=== PATIENT | female | born 1960 | race Caucasian/White ===

== ENCOUNTER 2017-01-01 22:08 | Inpatient (IN) ==
[2017-01-01 22:56] LABS: MANUAL DIFF NEEDED? NO; RBC 4.77 XMIL (4.2-5.4)
[2017-01-01 23:01] LABS: URINE MICRO REVIEW NEEDED? NO; URINE SOURCE CLEAN CATCH
[2017-01-01 23:14] LABS: ALBUMIN 4.6 g/dL (3.5-5.0); CALCIUM 10.3 mg/dL (8.8-10.2); POTASSIUM 4.3 mmol/L (3.5-5.1); TOTAL BILIRUBIN 0.35 mg/dL (0.20-1.00); TOTAL PROTEIN 7.6 g/dL (6.3-8.3)
[2017-01-01 23:18] LABS: BILIRUBIN URINE NEGATIVE (NEGATIVE); BLOOD URINE NEGATIVE (NEGATIVE); COLOR YELLOW; GLUCOSE URINE NEGATIVE (NEGATIVE); LEUKOCYTES URINE SMALL (NEGATIVE); NITRITE URINE NEGATIVE (NEGATIVE); PROTEIN URINE TRACE mg/dL (NEGATIVE); SP GRAVITY URINE 1.022; TURBIDITY URINE CLEAR (CLEAR); UROBILINOGEN URINE NORMAL (NORMAL)
[2017-01-01 23:20] LABS: UR EPITHELIAL CELLS <10 /HPF (<10); URINE BACTERIA NEGATIVE /HPF; URINE CULTURE NEEDED? YES; URINE RBC <10 /HPF (<10); URINE WBC <10 /HPF (<10)
[2017-01-01] MEDS ORDERED: ZOFRAN IV ONE (23:29)
[2017-01-01] MEDS ORDERED: DILAUDID IV ONE (23:29)
[2017-01-02] MEDS ORDERED: ZOFRAN IV PRN (00:40)
[2017-01-02] MEDS ORDERED: NS 1,000 ML IV ONE (00:40)
--- NOTE | 2017-01-02 00:44 | PROVIDER DOCUMENTATION ---
This chart was entered by Krystyna Davis Scribe, acting as scribe for Caden Kaur PA. HPI-Abdominal Pain/GI Problem - General Chief Complaint: Abdominal Pain Stated Complaint: ABD PAIN Time Seen by Provider: 01/01/17 23:03 Source: patient Allergies/Adverse Reactions: Patient Allergies Allergy/AdvReac Type Severity Reaction Status Date / Time No Known Allergies Allergy Verified 01/02/17 00:20 Home Medications: Home Medication List Medication Instructions Recorded Confirmed Last Taken Type Levetiracetam 500 mg PO QPM 05/26/15 01/02/17 01/01/17 History Alprazolam [Xanax] 1 mg PO HS 07/08/16 01/02/17 01/01/17 History Vitamin B Complex 1 each PO DAILY 07/08/16 01/02/17 01/01/17 History Hydrocodone/APAP 10 mg/325 mg 1 each PO Q6H PRN PRN #0 tablet 07/10/16 01/02/17 01/01/17 Rx [[place]-10] - History of Present Illness-ABD Nature of Presenting Problems: 56 year old F presents to the ED with a cc of lower ABD pain with an onset of this morning at 0815. PT states that it has become more achy and severe. PT states that she has not had a bowel movement or passing flatulence. Pt states that pain subsided around 1500. TP states that she ate a small meal and it has since come back and pt states that she has lost her appetite. Pt states that she has a hx of incarcerated hernia with a repair by Dr. Jordan. Quality of Pain: reports: aching Severity in ED: reports: severe Onset/Duration: reports: this morning (0815) Timing: reports: still present Bruising or Bleeding Gums?: No Similar Symptoms Previously?: No Recently seen or treated by another doctor?: No Review of Systems - Adult - REVIEW OF SYSTEMS - ADULT Constitutional: denies: chills, fever Eyes: reports: no symptoms reported. denies: blurred vision, double vision Ears, Nose, Mouth & Throat: reports: no symptoms reported Cardiovascular: reports: no symptoms reported Respiratory: reports: no symptoms reported Gastrointestinal: reports: abdominal pain. denies: nausea, vomiting Genitourinary: denies: dysuria, flank pain, hematuria Musculoskeletal: reports: no symptoms reported Integumentary: reports: no symptoms reported Neurological: reports: no symptoms reported Psychiatric: reports: no symptoms reported Endocrine: reports: no symptoms reported Hematologic/Lymphatic: reports: no symptoms reported Allergic/Immunologic: reports: no symptoms reported All Other Systems: Reviewed and Negative Past History - Adult - PAST MEDICAL HISTORY-ADULT Review of Records: reports: Nursing Assessment Review, Medications Reviewed Major Childhood Illnesses: reports: denies history Cardiovascular: reports: cardiac disease, HTN Respiratory: reports: denies history Gastrointestinal: reports: denies history Obstetrical/Gynecological: reports: denies history Genitourinary: reports: denies history Musculoskeletal: reports: denies history Neurological: reports: Seizures/Epilepsy Endocrine/Immune: reports: Diabetes, thyroid disorder Other Conditions: reports: denies history - PRIOR SURGERIES/PROCEDURES Surgical/Procedure History: reports: cholecystectomy, hysterectomy, bowel surgery (Internal hernia surgery by Dr. Jordan 05/2015), gastric bypass - IMMUNIZATION STATUS Childhood Immunizations: See Nurse Assessment Flu Vaccine: See Nurse Assessment - FAMILY HISTORY Family History: reviewed, not pertinent - SOCIAL HISTORY Smoking: quit greater than 1 year Substance Use: marijuana Alcohol Use Frequency: never Physical Exam-General - PHYSICAL EXAM-ADULT Initial Vital Signs Reviewed: Yes - CONSTITUTIONAL General Appearance: alert, moderate distress - EYES Eyes: PERRL/EOMI, pink conjunctivae - HEAD, EARS, NOSE, MOUTH & THROAT HENMT: normocephalic/atraumatic, moist mucous membranes, normal ENT inspection - NECK Neck: normal inspection - RESPIRATORY Respiratory: chest non-tender, lungs clear, normal breath sounds - CARDIOVASCULAR Cardiovascular: normal peripheral pulses, regular rate, rhythm - GASTROINTESTINAL (ABDOMEN) Abdominal Exam: guarding, rebound, tenderness (diffuse lower abd pain) - LYMPHATIC Lymphatic: no adenopathy - MUSCULOSKELETAL Back Exam: normal inspection, no CVA tenderness, no vertebral tenderness Extremity: normal range of motion, non-tender, normal inspection - SKIN Integumentary: normal color, normal turgor, warm/dry - NEUROLOGIC Neurologic: grossly normal, no motor/sensory deficits - PSYCHIATRIC Psych/Mental Status: normal mood/affect, normal thought content, normal thought process, oriented x 3 Progress - PLAN OF CARE/RESULTS Progress/Plan/Lab Results: Vital Signs - 8 hr 01/01/17 22:14 Temperature 97.5 F L Pulse Rate 112 H Respiratory Rate 20 Blood Pressure 144/102 O2 Sat by Pulse Oximetry 96 Laboratory Results - last 24 hr 01/01/17 01/01/17 01/01/17 22:43 22:43 22:43 WBC 9.70 RBC 4.77 Hgb 15.2 Hct 45.8 MCV 96.0 MCH 31.9 H MCHC 33.2 RDW Std Deviation 13.0 Plt Count 221 MPV 11.1 H Immature Gran % (Auto) 0.2 Neut % (Auto) 81.9 H Lymph % (Auto) 11.6 L [place] % (Auto) 5.6 Eos % (Auto) 0.5 Baso % (Auto) 0.2 Immature Gran # (Auto) 0.02 Neut # (Auto) 7.94 H Lymph # (Auto) 1.13 L [place] # (Auto) 0.54 Eos # (Auto) 0.05 Baso # (Auto) 0.02 Sodium 138 Potassium 4.3 Chloride 97 L Carbon Dioxide 25 Anion Gap 16 BUN 21 Creatinine 1.3 H Estimated GFR/1.73 m2 42 BUN/Creatinine Ratio 16 Glucose 108 H Calculated Osmolality 279 Calcium 10.3 H Total Bilirubin 0.35 AST 22 ALT 17 Alkaline Phosphatase 87 Total Protein 7.6 Albumin 4.6 Globulin 3.0 Albumin/Globulin Ratio 1.5 Amylase 59 Lipase 15 Urine Source CLEAN CATCH Urine Color YELLOW Urine Turbidity CLEAR Urine pH 6.0 Ur Specific [place] 1.022 Urine Protein TRACE A Ur Glucose (Stick) NEGATIVE Ur Ketones (Stick) NEGATIVE Urine Blood NEGATIVE Urine Nitrite NEGATIVE Urine Bilirubin NEGATIVE Urobilinogen Dipstick NORMAL Urine Leukocytes SMALL A Urine WBC (Auto) <10 Urine RBC (Auto) <10 U Epithel Cells (Auto) <10 Urine Bacteria (Auto) NEGATIVE Orders Category Date Time Status Saline Loc DIRECTED Care 01/01/17 22:29 Active NPO Diet 01/01/17 22:[address] ABD/PELVIS W/ IV CONT ONLY [CT] Stat Exams 01/01/17 23:28 Taken AMYLASE [CHEM] Stat Lab 01/01/17 22:43 Completed CBC WITH ELECTRONIC DIFF [HEME] Stat Lab 01/01/17 22:43 Completed COMPREHENSIVE METABOLIC PANEL [CHEM] Stat Lab 01/01/17 22:43 Completed LIPASE [CHEM] Stat Lab 01/01/17 22:43 Completed URINALYSIS W/POSS RFLX CULT-1 [URINALYSIS] Stat Lab 01/01/17 22:43 Completed URINE CULTURE [RM] Routine Lab 01/01/17 23:22 Received Hydromorphone [Dilaudid] Med 01/01/17 23:29 Discontinued 1 mg IV NOW ONE Ondansetron [Zofran] Med 01/01/17 23:29 Discontinued 4 mg IV NOW ONE 0028: Dr. Lott at bedside examining pt. Result Diagrams: 01/01/17 22:43 01/01/17 22:43 - REASSESSMENT Reassessment #1 Time Reassessed: 00:35 (Dr. Lott (General Surgery) at bedside. Feels that pt may have an internal hernia that is not apparent on CT scan. He will admit pt and is taking her to the OR tonight.) - CT/MRI 1 CT Study: Abdomen, Pelvis Impression: Abnormal (abnormal edema in the mesenteric fat of the left ABD and pelvis is of uncertain etiology. There is a small amount of free fluid. No obstruction or free air. This was not present previously. No large vessel vascular occlusion identified. Chronic biliary ductal dilatation of uncertain etiology.:Dr. Bell(Real Rad Radiologist)) - CONSULTS/PCP/HOSPITALIST Notification #1 *Consult/PCP/Hospitalist*: Dr. Lott (General Surgery) Time Discussed: 00:10 (Will take to OR tonight.) Departure - Departure Date of Disposition Decision: 01/02/17 Time of Disposition Decision: 00:37 DIAGNOSIS: Abdominal pain, Internal hernia Disposition: ADMITTED INPATIENT 09 Certified Medical Emergency: Emergent Condition: Stable Referrals and Follow-Ups: Azam Roa MD [Primary Care Provider] - - Critical Care Note This patient required my direct & personal management of CC.: No Attestation - Physician/ TYREE Attestation Patient care was provided by Advanced Practice Provider:: Yes Advanced Practice Provider:: Caden Kaur Advanced Practice Provider documentation review:: The Mid-level provider documentation, treatment plan and medical decision making was reviewed by the physician who agrees with all treatment and medical decision making by the MLP. This chart was documented by the indicated scribe, (Krystyna Davis Scribe) and accurately reflects the services I performed and decisions made by me, Caden Kaur PA, as attested by the provider's signature.
[2017-01-02 01:00] LABS: INR 0.99; PROTIME 10.4 Seconds (9.2-11.7); PTT 26.1 Seconds (22.0-36.0)
[2017-01-02 01:16] LABS: BASO% 0.3 % (0.0-0.8); EOS# 0.04 X1000 (0.0-0.7); EOS% 0.4 % (0.0-10.0); HEMATOCRIT 45.7 % (37.0-47.0); HEMOGLOBIN 15.3 g/dL (12.0-16.0); LYMPH# 1.18 X1000 (1.2-3.4); LYMPH% 12.5 % (20.5-51.1); MCH 32.1 PG (27-31); MCHC 33.5 g/dL (33-37); MCV 95.8 FL (81-99); MONO# 0.59 X1000 (0.11-0.59); MONO% 6.2 % (1.7-9.3); MPV 11.8 FL (7.4-10.4); NEUT% 80.6 % (42.2-75.2); PLT 219 X1000 (130-400)
[2017-01-02] MEDS: MORPHINE IV PRN ×6 (01:21→23:09)
[2017-01-02] MEDS ORDERED: INVANZ 1 GM/NS 1 GM/50 ML IVPB ONE (01:58)
[2017-01-02] MEDS ORDERED: LABETALOL (DOSE) IV ONE ×2 (03:25→04:00)
[2017-01-02] MEDS: MORPHINE ONE ×2 (03:29→07:13)
[2017-01-02] MEDS: PHENERGAN ONE ×2 (03:29→07:13)
[2017-01-02] MEDS ORDERED: LOPRESSOR ONE (03:31)
[2017-01-02] MEDS: LOPRESSOR IV SCH ×6 (03:34→20:37)
[2017-01-02] MEDS: LABETALOL ONE ×2 (03:40→07:13)
[2017-01-02] MEDS: DILAUDID ONE ×2 (03:42→07:14)
--- NOTE | 2017-01-02 04:29 | HISTORY AND PHYSICAL ---
DATE OF ADMISSION: 01/02/2017 HISTORY OF PRESENT ILLNESS: This is a 56-year-old female with history of a Romy -en-Y gastric bypass for morbid obesity many years ago, who has history of nephrolithiasis and chronic pain. She was operated on by Dr. Jordan back in May 2015 for an internal hernia through the jejunojejunostomy mesenteric defect. The repaired this and she has done well since that time. She states that earlier this evening, she developed a similar-type pain and nausea just like her previous episode in 2014 prompting her admission to the emergency department. She has had and lithotripsies and stents placed in the past for kidney stones but she states that those have been relatively asymptomatic and if she did have symptoms, it was different than what she is having currently. Denies any vomiting. Bowel function has been otherwise normal up to this point. She does not smoke. Denies any NSAID abuse. PAST MEDICAL HISTORY: 1. Atrial fibrillation. 2. History of morbid obesity with gastric bypass. 3. Hypertensive. 4. Diabetic. 5. Seizure disorder. 6. Nephrolithiasis. PAST SURGICAL HISTORY: 1. Romy-en-Y gastric bypass. 2. Cholecystectomy. 3. Hysterectomy. 4. Exploratory laparotomy with repair of internal hernia. SOCIAL HISTORY: Denies tobacco, alcohol, or drugs. She is here with her son. REVIEW OF SYSTEMS: Ten point negative except for what is mentioned in her HPI. PHYSICAL EXAMINATION: Vital Signs: Temperature is 97.5, pulse has been in the 1 teens, blood pressure 144/102, oxygen saturation 96% on room air. General: She is in obvious discomfort. She is writhing around in bed, holding her stomach. Cardiovascular: She is tachycardic but this feels regular. Pulmonary: No increased work of breathing. Abdomen: Diffusely tender. Worse on her left side. She does have some guarding both voluntary and involuntary. She is nondistended. Integument: Otherwise warm, dry without jaundice. Lymphatics: I do not feel any cervical, supraclavicular or infraclavicular lymphadenopathy. LABS/DIAGNOSTICS: Reviewed. White count is normal at 9. Hematocrit is elevated at 45, platelets 221,000. Creatinine is 1.3. This is around her baseline. Glucose 108. LFTs are normal. Bilirubin 0.35. AST 22 and ALT 17, alkaline phosphatase 87, lipase 15, amylase 59. Urinalysis shows some small leukocytes, trace protein but it is negative for blood. A CT scan with some vague findings shows common bile duct dilation which has been stable on numerous scans but dating back over the last several years. She also has some mesenteric edema and stranding on the left side of her abdomen extending down the pelvis. There is no obvious bowel wall thickening. There is some trace free fluid. I do not see any free air. I do not see an obvious mesenteric swirl or evidence of internal hernia. ASSESSMENT AND PLAN: This is a 56-year-old female with history Romy-en-Y gastric bypass, who had emergent operation 2 years ago for internal hernia by Dr. Jordan. She presents back now with similar-type symptoms to that time and some nonspecific changes on her CT scan. Given the catastrophic consequence of missing an internal hernia, I have recommended exploratory laparotomy tonight and repair of internal hernia with all indicated procedures. She does have a history of atrial fibrillation and it is possible that she has had some kind of focal ischemic insult. She has a lactic acid that is pending. I do not see signs of obstructing renal stone, as she has no blood in her urine to suggest that this is the etiology. She has a mild urinary tract infection. But again, suspect this is not causing her ultimate problems. We discussed possibly a bowel resection possible ostomy and all indicated procedures, and we also discussed the possibility of a negative exploratory laparotomy. She understands and consents to this. We will proceed emergently tonight to the operating room. Placed in G-tube and Ramirez catheterization at this point, in anticipation of the OR. We will admit her to my service postoperatively. cc: Erick Lott MD [facility]
--- NOTE | 2017-01-02 04:52 | OPERATIVE NOTE ---
PROCEDURE DATE: 01/02/2017 PREOPERATIVE DIAGNOSIS: Internal hernia with history of Romy-en-Y gastric bypass. POSTOPERATIVE DIAGNOSES: 1. Internal hernia related to adhesions from the appendix to the abdominal wall. 2. Nodular liver. PROCEDURES PERFORMED: 1. Exploratory laparotomy. 2. Open appendectomy. 3. Lysis of adhesions. 4. A wedge resection biopsy of segment 3 liver nodules. COMPLICATIONS: None. ANESTHESIA: General. INDICATIONS: A 56-year-old female, who has a history of a Romy-en-Y gastric bypass many years ago. Approximately 3 years ago, she required emergent exploratory laparotomy with reduction of internal hernia secondary to a defect in the jejunojejunostomy mesenteric defect who presents with acute onset of abdominal pain similar to her previous episode and some mesenteric edema noted and stranding noted on the CT scan. OPERATIVE FINDINGS: There was volvulus of the small bowel in the right lower quadrant related to adhesions to the appendix and to the sidewall. The appendix did not appear significantly dilated or inflamed but there was some loose adhesions to the anterior lateral abdominal wall that had caused the defect to allow some small bowel to herniate through this. All the small bowel was viable. There was a patent jejunal jejunostomy with no mesenteric defect. The [place] defect was closed. There is an antecolic Romy limb extending up to the gastric pouch with a patent anastomosis here. The gastric remnant appeared normal. There is no significant dilation of small bowel. There are some adhesions to the gallbladder fossa from previous cholecystectomy. Uterus was absent as were the ovaries. Small amount of serosanguineous ascites. There was a diffusely nodular liver. There were small punctate whitish appearing nodules throughout bilateral lobes of the liver of unclear etiology. OPERATIVE NOTE: Risks, benefits, and alternatives were discussed with the patient and family. She consented to the procedure. She was taken emergently to the operating room after general anesthesia was induced. She did have a Ramirez catheter and an NG tube placed prior to induction. General anesthesia was induced. Incisional antibiotics with Invanz were administered. Her arms were tucked and padded and placed in neutral position. Her abdomen was prepped with chlorhexidine solution and draped in usual fashion. After time-out was performed, the previous midline incision was incised and carried down to the level of the fascia. The fascia was elevated and entered sharply to protect the underlying bowel. There was minimal midline adhesions noted and we protected the bowel here. There is no injury obtaining access. We opened the incision cephalad and inferiorly and then starting at the ileocecal valve, the cecum was mildly dilated but we started here. It became clear there were adhesions. The cecum was quite redundant but there were adhesions of the appendix down to the right lower quadrant. We ran the small bowel. We did require some reduction but this was easily done out of this defect made here. We ran it from distally proximally identifying the jejunojejunostomy. This was patent without perforation and the mesenteric defect was closed here. We ran this back following the Romy limb up in an anti colic fashion. Noriega space here was closed as well. There is no defect here. The biliopancreatic limb was nondilated and coursed in the usual position. We examined the gastric pouch and the gastrojejunostomy and these looked okay. The colon had some formed stool throughout but did not appear to be obstructed by the Romy limb and the colon was normal. After reducing the small bowel back into its anatomic position. We identified the appendix. We lysed these adhesions off the lateral pelvic sidewall. We took the mesoappendix with silk ties and clamps taking it back to the base of the cecum. We then doubly ligated including a suture ligature the base of the appendix and divided this passing it off as specimen. We fulgurated the base and imbricated this with a Z-type imbricating suture. There is good closure of the appendiceal stump. Hemostasis was noted. We then ran the small bowel again. Everything was laying in a neutral position. There is no residual mesenteric defect. We irrigated the abdomen. At this point, we inspected the liver and we noticed that it was diffusely nodular and was not a typical steatosis or cirrhotic appearance. As such, we elected to take a biopsy to rule out any neoplastic process here. We elevated the liver and placed a malleable retractor to protect the stomach underlying. Using electrocautery, we excised out a wedge segment of segment 3 of the liver and obtained hemostasis of the bed and passed this off as a liver biopsy. We confirmed hemostasis. No bile leakage here. We again irrigated the abdomen and inspected it for hemostasis. We closed the fascia #1 running looped PDS. Irrigated the superficial wound, buried the knot and we closed the skin with skin golden, gauze and Medipore tape dressing was applied. Counts correct x2.She was awoken and transferred to PACU in good condition. I spoke with the family. cc: Erick Lott MD MTDD
[2017-01-02] MEDS: CARDIZEM 100 MG/NS 100 MG/100 ML IVPB IV SCH ×2 (04:56→09:23)
[2017-01-02] MEDS ORDERED: DIPRIVAN 1% ONE (05:14)
[2017-01-02] MEDS ORDERED: FENTANYL ONE (05:14)
[2017-01-02] MEDS ORDERED: MORPHINE ONE (05:14)
[2017-01-02 05:47] LABS: MANUAL DIFF NEEDED? NO
[2017-01-02 05:51] LABS: BASO% 0.1 % (0.0-0.8); HEMATOCRIT 43.6 % (37.0-47.0); HEMOGLOBIN 14.4 g/dL (12.0-16.0); IMM GRAN# 0.05 X1000 (0.0-0.04); IMM GRAN% 0.3 % (0.0-0.5); LYMPH% 6.9 % (20.5-51.1); MCH 32.1 PG (27-31); MCV 97.1 FL (81-99); MONO# 1.73 X1000 (0.11-0.59); MONO% 9.2 % (1.7-9.3); MPV 11.7 FL (7.4-10.4); NEUT% 83.5 % (42.2-75.2); PLT 233 X1000 (130-400); RBC 4.49 XMIL (4.2-5.4)
[2017-01-02] MEDS ORDERED: SODIUM CHLORIDE 0.9% INJ ONE (06:20)
[2017-01-02] MEDS ORDERED: PROTONIX IV ONE (06:20)
[2017-01-02] MEDS ORDERED: LR 1,000 ML IV SCH (06:20)
[2017-01-02 07:05] LABS: CALCIUM 8.7 mg/dL (8.8-10.2); POTASSIUM 3.6 mmol/L (3.5-5.1)
--- NOTE | 2017-01-02 08:00 | Diag Imaging Result Doc PS360 ---
EXAM: CT ABD/PELVIS W/ IV CONT ONLY INDICATION: ABD PAIN, H/O INCARCERATED HERNIA COMPARISON: 02/26/2016 FINDINGS: There has been a previous cholecystectomy. There is significant intrahepatic and extrahepatic biliary dilatation with the common bile duct measuring up to 1.9 cm axially. However, it appears to be less dilated than the previous study. There are several low dense hepatic foci most compatible with small cysts. There is a small enhancing lesion near the border between the left and right hepatic lobe. It is best seen on the early arterial phase and measures approximately 1.4 cm in the greatest dimension. It is stable as compared to a prior enhanced CT dated 05/26/2015 and may represent a small flash filling hemangioma. There is evidence of prior gastric bypass. No discrete pancreatic mass can be identified. There is a small hiatal hernia. There is a small amount of ascites tracking around the liver. There is no evidence of bowel obstruction. There is evidence of bilateral renal cortical scarring, worse on the right, stable. There is bilateral nephrolithiasis with no sign of obstruction. There is nonspecific fairly diffuse mesenteric edema. There is marked thickening of the left adrenal gland, which is stable. It exhibits a density compatible with left adrenal adenomas. There is aortoiliac atherosclerotic calcification but no evidence of aneurysm. The remainder of the solid viscera of the abdomen and pelvis and the remainder of the GI tract are essentially unremarkable. IMPRESSION: 1.Small amount of ascites tracking around the liver and diffuse mesenteric edema of uncertain etiology. 2.Biliary dilatation. However, the common bile duct appears slightly less dilated than the previous study. 3.Other incidental/nonacute findings detailed above. Electronically signed by Caden Roberts 01/02/2017 7:58 AM
--- NOTE | 2017-01-02 08:19 | Diag Imaging Result Doc PS360 ---
EXAM: CHEST/ABD TUBE PLACEMENT HISTORY: NG tube TECHNIQUE: Portable upright at 0115 COMMENT: There is an NG tube with its tip at the level of the cardia of the stomach. The left costophrenic angle is not included on the image. There is no evidence of focal pulmonary opacity otherwise in the heart and pulmonary vascularity are within normal limits. There is some questionable extraluminal gas in the lower portion of the neck extending into the superior mediastinum along the trachea. Further evaluation may be desirable. IMPRESSION: NG tube at the level of the gastroesophageal junction or slightly below. Questionable superior pneumomediastinum. Electronically signed by Deacon Schmidt 01/02/2017 8:17 AM
[2017-01-02] MEDS ORDERED: SODIUM CHLORIDE 0.9% 10 ML ONE (09:29)
[2017-01-02] MEDS ORDERED: NEOSTIGMINE ONE (09:29)
[2017-01-02] MEDS ORDERED: LABETALOL (DOSE) ONE (09:29)
[2017-01-02] MEDS ORDERED: NORCURON ONE (09:29)
[2017-01-02] MEDS ORDERED: ZOFRAN ONE (09:29)
[2017-01-02] MEDS ORDERED: XYLOCAINE-MPF 2% ONE (09:30)
[2017-01-02] MEDS ORDERED: QUELICIN (DOSE) ONE (09:30)
[2017-01-02] MEDS ORDERED: ROBINUL ONE (09:30)
[2017-01-02] MEDS ORDERED: LR 2,000 ML ONE (09:30)
--- NOTE | 2017-01-02 11:23 | CONSULTATION ---
DATE OF CONSULTATION: 01/02/2017 PRIMARY CARE PHYSICIAN: Dr. Azam Roa DESK ATTENDANT: Dr. Major REASON FOR CONSULTATION: Management of atrial fibrillation. HISTORY OF PRESENT ILLNESS: Ms. Dan is a pleasant 56-year-old female who presented to the hospital yesterday evening with complaints of recurrent abdominal pain. They did a CT scan of the abdomen and pelvis that showed biliary dilatation, a small amount of ascites tracking around the liver and diffuse mesenteric edema of uncertain etiology. The patient was taken emergently to the operating room by Dr. Glen Lott, and he performed an exploratory laparotomy with open appendectomy, lysis of adhesions and a wedge resection of a segment of the liver because of nodules. The patient is in the postoperative state. She was found to be in atrial fibrillation with rapid response. She has been placed on IV Cardizem, and heart rate is better after she received also a dose of metoprolol 5 mg. The patient at this time is not having any chest pain nor symptoms in the chest. She just has incisional pain, and she is on a Ventimask. Otherwise, she seems to be comfortable and in no distress. She is in the immediate postoperative state following this abdominal surgery. PAST MEDICAL HISTORY: Positive for atrial fibrillation, initially paroxysmal and subsequently has become permanent. There was hesitation from the Cardiology Team about putting her on anticoagulation because she was having recurrent kidney stones and hematuria. In addition, she is relatively young and has hypertension that is not significantly severe. She used to be diabetic; however, after undergoing gastric bypass and losing nearly 200 pounds, she has normalized her blood sugars. History is positive for recurring kidney stones. She has a seizure disorder diagnosed 2 or 3 years ago. She has gastric reflux. PAST SURGICAL HISTORY: Positive for a gastric bypass procedure. She has also been operated for cholecystectomy and hysterectomy. She has also had an internal hernia that required surgery for an internal hernia reduction via exploratory laparotomy by Dr. Jordan in 05/2015. SOCIAL HISTORY: She is and lives with her son who is 26 years of age. She is not a smoker and not a drinker. 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 HOME MEDICATIONS: Levetiracetam 500 mg at bedtime, hydrocodone every 6 hours, Xanax at bedtime, vitamin B complex daily. ALLERGIES: She has no reported allergies. REVIEW OF SYSTEMS: Really nothing significant other than the fact that she has lost a great deal of weight of more than 330 pounds prior to the bypass down now to 128 pounds. She said that her diabetes has not required any more treatment with medicines. She follows with Dr. Roa regularly. She has had procedures done for kidney stones by Dr. Urban. No strokes. No heart attacks. No active heart problems. The last echocardiogram that we have on record was done on 02/27/2016 and it showed normal left ventricular systolic function with moderate to significant dilatation of both atria, moderate degree of mitral and tricuspid regurgitation and significant pulmonary hypertension. She has had previous myocardial perfusion stress test in 01/2014 that showed a defect suspicious for attenuation artifact in the mid inferior and basilar inferior wall. PHYSICAL EXAMINATION: Today, blood pressure is 130/78, temperature 99.1, pulse 94, respirations 31. She is awake, alert, oriented, in no distress. HEENT is unremarkable. Chest is very clear to auscultation and percussion. Heart sounds are irregularly irregular without gallop or murmur. Her abdomen is tender, especially at the incision. Bowel sounds are diminished. Extremities showed good pulses. No peripheral edema. Neurologic: She moves all 4 extremities, follows commands. DIAGNOSTIC DATA: Blood work today showed sodium 140, potassium 3.6, BUN of 18, creatinine 1.1. Troponin has been checked and is negative. She has had hemoglobin of 14.4, white count 18,730, platelet count is 233,000. IMPRESSION: 1. The patient is status post laparotomy for management of what appears to be an internal hernia involving the appendix. Appendectomy and hernia repair have been performed. 2. Chronic atrial fibrillation. 3. History of hypertension. 4. Status post gastric bypass for management of morbid obesity. Her weight now is 125 pounds. 5. History of recurrent kidney stones. 6. Reported history of diabetes that apparently is under control now after the massive weight reduction. RECOMMENDATIONS: From a cardiology viewpoint, the patient appears to be stable. I would suggest to continue beta blockers at low doses as you are doing. You may continue IV Lopressor 5 mg every 4 to 6 hours and then once the oral route is available, we may switch over to metoprolol 25 mg every 6 to 8 hours to optimize the patient's heart rate. Regarding anticoagulation, we will make a decision about that down the road. At this point in time, I would suggest not to give her anything but preventive doses of Lovenox. Thank you for the opportunity to participate in her evaluation. Best regards. cc: MD Erick Pride MD
[2017-01-02] MEDS: 1/2 NS 1,000 ML IV SCH ×2 (13:08→20:40)
[2017-01-02] MEDS: OFIRMEV 1000 MG/ISOTONIC SOLN 1,000 MG/100 ML BOTTLE IV SCH (18:43)
[2017-01-02] MEDS: XANAX PO SCH (20:38)
[2017-01-02] MEDS: KEPPRA PO SCH (20:38)
[2017-01-03] MEDS: OFIRMEV 1000 MG/ISOTONIC SOLN 1,000 MG/100 ML BOTTLE IV SCH ×4 (00:26→18:12)
[2017-01-03] MEDS: LOPRESSOR IV SCH ×4 (03:24→21:00)
[2017-01-03] MEDS: MORPHINE IV PRN ×8 (03:24→23:57)
--- NOTE | 2017-01-03 06:30 | PROGRESS NOTE ---
DATE: 01/02/2017 SUBJECTIVE: Minimal pain. She is requiring some open face mask O2 when she falls asleep. Heart rates better controlled and now less than 100 consistently on the diltiazem drip. Otherwise, hemodynamically stable. Urine output has been good. OBJECTIVE: Vital Signs: Temperature afebrile 99.1, pulse 94, blood pressure 130/78, oxygen saturation 98% on 4 L nasal cannula. General: She is alert, in no acute distress. Dressing is clean, dry, and intact. Abdomen: Soft, appropriately tender. LABS: Reviewed her labs. White count is up to 18, hematocrit 43, creatinine is 1.1. Glucose 224. Troponins are normal. Lactate was elevated at 3.9. ASSESSMENT AND PLAN: This is a 56-year-old female status post exploratory laparotomy with internal small-bowel volvulus with no necrosis related to adhesions. Overall she is doing well. Will remove her nasogastric tube this morning. Plan to keep the Ramirez in and take it out tomorrow. She is in the intensive care unit. Cardiology's recommendations are pending, but she is on metoprolol and diltiazem. cc: Erick Lott MD
[2017-01-03] MEDS: 1/2 NS 1,000 ML IV SCH ×2 (09:42→23:53)
--- NOTE | 2017-01-03 12:04 | PROGRESS NOTE ---
DATE: 01/03/2017 SUBJECTIVE: She is not having any complaints today other than mild to moderate abdominal tenderness. She is tolerating ice chips without much discomfort. PHYSICAL EXAMINATION: Vital signs: Currently, her heart rate is in the 80s during my examination. She has been afebrile. T-max of 100.1 yesterday at 8 p.m. Heart rates documented appear to be in the 90s to very low 100s. Blood pressure 157/101. General: She is in no acute distress. Cardiovascular: She is in an irregularly irregular rhythm. She has no murmurs, no lower extremity edema. Chest: Exam is clear bilaterally. No increased work of breathing. Abdomen: Soft. She has mild to moderate tenderness to palpation somewhat diffusely. Minimal bowel sounds were auscultated. PERTINENT LABORATORY DATA: White count is 18.7, hematocrit 43, platelet count is 233. Sodium is 140. Potassium is 3.6. Her BUN is 18, creatinine is 1.1. ASSESSMENT: Chronic atrial fibrillation. PLAN: Rate is reasonably well controlled. We can certainly switch to oral medications when she is able to take them reliably. Again, would likely use metoprolol per Dr. Morris's recommendations yesterday. I would withhold anticoagulation presently considering concerns previously with long-term outpatient oral anticoagulation with her repetitive history of kidney stones and hematuria. cc: MD Erick Saldaña MD
--- NOTE | 2017-01-03 12:36 | PROGRESS NOTE ---
DATE: 01/03/2017 SUBJECTIVE: The patient denies any severe pain, nausea or vomiting. She has not had any flatus yet. OBJECTIVE: Vital signs: She is afebrile. Vital signs are stable. Urine output is 3640 mL yesterday. General: She is alert and oriented x4, in no acute distress. CV: Regular rate and rhythm. Respiratory: No work of breathing. GI: Soft, nondistended, appropriately tender. Incision is clean, dry, and intact. She does have a few bowel sounds. LABS: There are no labs today. ASSESSMENT AND PLAN: A 56-year-old female status post exploratory laparotomy with liver biopsy, appendectomy, and reduction of small bowel volvulus. We will await return of bowel function and encourage her to be out of bed more. cc: MD Erick Jacobson MD
[2017-01-03] MEDS: XANAX PO SCH (21:00)
[2017-01-03] MEDS: KEPPRA PO SCH (21:00)
[2017-01-04] MEDS: OFIRMEV 1000 MG/ISOTONIC SOLN 1,000 MG/100 ML BOTTLE IV SCH ×2 (00:42→06:34)
[2017-01-04] MEDS: 1/2 NS 1,000 ML IV SCH ×4 (04:30→22:58)
[2017-01-04] MEDS: LOPRESSOR IV SCH ×4 (04:30→21:46)
[2017-01-04] MEDS: MORPHINE IV PRN ×3 (04:31→17:04)
[2017-01-04] MEDS: APRESOLINE IV PRN (05:29)
--- NOTE | 2017-01-04 10:12 | PROGRESS NOTE ---
DATE: 01/04/2017 SUBJECTIVE: The patient denies significant abdominal pain, chest pain or shortness of breath. She has had some mild nausea. She also has passed some gas. OBJECTIVE: She is afebrile. Pulse 80s to 90s, respiratory rate 16, blood pressure 151 to 181 systolic and 110 to 122 diastolic, oxygen saturation 96% to 99%. General: She is alert and oriented x4, no acute distress. Cardiovascular: Regular rate and rhythm. Respiratory: No work of breathing. Gastrointestinal: Soft, nondistended, appropriately tender. Incision is clean and dry. She has a few bowel sounds. LABORATORY DATA: No laboratories today. ASSESSMENT AND PLAN: A 56-year-old female status post exploratory laparotomy with reduction of small bowel volvulus, liver biopsy and appendectomy. She appears to be making progress. We are going to start her on a clear liquid diet today. I have encouraged her to increase her activity with walking and sitting in the chair. We will take her Armirez catheter out. I think she can go to the floor. We are still having some trouble with her blood pressure. Dr. Flowers will address this today. cc: MD Erick Jacobson MD
[2017-01-04] MEDS: NORVASC PO SCH (13:10)
[2017-01-04] MEDS: NORCO-7.5 PO PRN ×2 (13:10→20:06)
--- NOTE | 2017-01-04 13:23 | PROGRESS NOTE ---
DATE: 01/04/2017 SUBJECTIVE: Ms. Dan reports she feels okay. She is tolerating oral intake. There is no heart racing. She reports her pain has been reasonably well controlled. PHYSICAL EXAMINATION: Vital signs: Afebrile, heart rate 85. Her blood pressures have been fairly elevated, being anywhere from the 150s to 180s systolic over the 110s to 120s diastolic. General: No acute distress. Cardiovascular: She is in an irregularly irregular rhythm. No obvious murmurs. She has no S3. No lower extremity edema. Chest: Exam is clear bilaterally. She has no increased work of breathing. Abdomen: Soft. Mild tenderness diffusely. No rebound or guarding. DATA: She has no recent laboratory data. ASSESSMENT: 1. Atrial fibrillation that is chronic. 2. Postoperative. PLAN: We will add amlodipine 5 mg daily to her regimen and continue on p.r.n. anti hypertensives. Her pain seems pretty well controlled from her standpoint, so I do not think that this is the major contributor to her hypertension. We will continue to follow. cc: MD Erick Saldaña MD
[2017-01-04] MEDS: XANAX PO SCH (20:06)
[2017-01-04] MEDS: KEPPRA PO SCH (20:07)
[2017-01-05] MEDS: MORPHINE IV PRN (01:07)
[2017-01-05] MEDS: APRESOLINE IV PRN (01:12)
[2017-01-05] MEDS: LOPRESSOR IV SCH ×2 (03:08→09:15)
[2017-01-05] MEDS: NORCO-7.5 PO PRN ×3 (03:08→13:51)
[2017-01-05] MEDS: NORVASC PO SCH (09:15)
[2017-01-05] MEDS: 1/2 NS 1,000 ML IV SCH (09:15)
[2017-01-05 15:45] VITALS: BP 137/95
[2017-01-05] MEDS ORDERED: LOPRESSOR PO SCH (21:00)
--- NOTE | 2017-01-06 05:59 | DISCHARGE SUMMARY ---
ADMISSION DATE: 01/02/2017 DISCHARGE DATE: 01/05/2017 HISTORY OF PRESENT ILLNESS: This is a 56-year-old female with a history of Romy-en-Y gastric bypass and history of internal hernia who presented with severe abdominal pain, nausea and CT scan findings concerning for possible internal hernia again. She was taken to the operating room on the day of her admission for exploratory laparotomy. For details, please see dictated operative note. She was found to have small bowel volvulus around some intra-abdominal adhesions and appendectomy. A liver biopsy was performed. She did well. She had return of bowel function. She was in atrial fibrillation upon arrival and was in the ICU for management of this. She was ultimately able to be weaned to oral regimens with the help of Cardiology who was following her while in the ICU. On the day of her discharge, wound was clean, dry and intact without any cellulitis. She was tolerating a soft diet with normal bowel function and voiding without difficulty. Her heart rate was controlled with oral med regimen alone and was felt safe for discharge. DISCHARGE INSTRUCTIONS: Discharge Medications: She is to continue taking her home medications. She was given prescription by Dr. Major for Lopressor. I gave her a prescription for [place], Colace, and Zofran. She can follow up with me in 1-2 weeks for staple removal. I gave her diet of GI soft low residual. Activity: Avoid heavy lifting greater than 10 pounds. Instructions: She is to call with nausea, vomiting, worsening fevers, abdominal pain, redness, drainage from her incisions or any concerns. She has my card and will call my office in the next week or 2 for follow up. DISPOSITION: Home to self care. cc: Erick Lott MD
== END 2017-01-05 17:13 | disposition home or self-care (01) ==
LOC: ED 22:08 → ICU 01-02 00:40 → ED 01-02 01:52 → ICU 01-02 04:38
PROVIDERS: ADMIT Surgery; ATTEND Surgery

== ENCOUNTER 2019-05-14 00:05 | Inpatient (IN) ==
[2019-05-14] MEDS ORDERED: NS 1,000 ML IV ONE ×2 (00:17→07:27)
[2019-05-14] MEDS ORDERED: ZOFRAN IV ONE ×2 (00:18→01:04)
[2019-05-14] MEDS ORDERED: DILAUDID IV ONE ×3 (01:03→06:50)
--- NOTE | 2019-05-14 01:09 | PROVIDER DOCUMENTATION ---
HPI-Abdominal Pain/GI Problem - General Chief Complaint: Abdominal Pain Stated Complaint: ABD N/V/D Time Seen by Provider: 05/14/19 00:56 Source: patient Allergies/Adverse Reactions: Patient Allergies Allergy/AdvReac Type Severity Reaction Status Date / Time No Known Allergies Allergy Verified 05/14/19 00:28 Home Medications: Home Medication List Medication Instructions Recorded Confirmed Last Taken Type Diltiazem HCl [Cartia Xt] 180 mg PO DAILY 03/26/19 05/14/19 05/12/19 History Escitalopram [Lexapro] 10 - 20 mg PO DAILY 03/26/19 05/14/19 05/12/19 History Alprazolam [Xanax] 1 tab PO BID 05/14/19 05/14/19 05/12/19 History Hydrocodone/Acetaminophen [[place] 1 tab PO TID PRN 05/14/19 05/14/19 05/12/19 History 10-325 Tablet] Levetiracetam [Keppra] 3 tab PO BID 05/14/19 05/14/19 05/13/19 History Metoprolol [Lopressor] 1 tab PO Q6HR 05/14/19 05/14/19 05/13/19 History - History of Present Illness-ABD Nature of Presenting Problems: Patient is a 58 year old white female with history of atrial fibrillation,seizure disorder, and chronic back pain who presents with worsening 10/10 generalized abdominal pain of past 3 days. Denies diarrhea, chest pain, fever, productive cough. Followed by Dr. Arie Roa. Abdominal Pain Onset Location: reports: generalized abdomen Quality of Pain: reports: aching Onset/Duration: reports: gradual, 3 days ago Timing: reports: still present, getting worse Exposure to sick contacts?: No Associated Symptoms: reports: anxiety Review of Systems - Adult - REVIEW OF SYSTEMS - ADULT Constitutional: denies: chills, fever Ears, Nose, Mouth & Throat: reports: no symptoms reported Cardiovascular: reports: no symptoms reported. denies: chest pain Respiratory: reports: no symptoms reported. denies: shortness of breath Gastrointestinal: reports: abdominal pain, nausea, vomiting. denies: diarrhea Genitourinary: reports: no symptoms reported Musculoskeletal: reports: back pain Integumentary: reports: no symptoms reported Neurological: reports: no symptoms reported Psychiatric: reports: no symptoms reported Endocrine: reports: no symptoms reported Hematologic/Lymphatic: reports: no symptoms reported Allergic/Immunologic: reports: no symptoms reported All Other Systems: Reviewed and Negative Past History - Adult - PAST MEDICAL HISTORY-ADULT Review of Records: reports: Old Records Reviewed, Nursing Assessment Review, Medications Reviewed, Social history reviewed & non-contributory. Major Childhood Illnesses: reports: denies history Cardiovascular: reports: cardiac disease, A-Fib, HTN Respiratory: reports: denies history Gastrointestinal: reports: denies history Obstetrical/Gynecological: reports: denies history Genitourinary: reports: denies history Musculoskeletal: reports: denies history Neurological: reports: Seizures/Epilepsy Endocrine/Immune: reports: Diabetes, thyroid disorder Other Conditions: reports: denies history - PRIOR SURGERIES/PROCEDURES Surgical/Procedure History: reports: cholecystectomy, hysterectomy, bowel surgery (Internal hernia surgery by Dr. Jordan 05/2015), gastric bypass - IMMUNIZATION STATUS Childhood Immunizations: See Nurse Assessment Flu Vaccine: See Nurse Assessment - FAMILY HISTORY Family History: reviewed, not pertinent - SOCIAL HISTORY Smoking: denies Substance Use: denies Alcohol Use Frequency: occasionally Living Situation: family Physical Exam-General - CONSTITUTIONAL General Appearance: alert, no apparent distress - EYES Eyes: other (clear) - HEAD, EARS, NOSE, MOUTH & THROAT HENMT: normocephalic/atraumatic, moist mucous membranes - NECK Neck: supple - RESPIRATORY Respiratory: lungs clear - CARDIOVASCULAR Cardiovascular: tachycardia - GASTROINTESTINAL (ABDOMEN) Abdominal Exam: soft, tenderness (diffuse). negative: guarding, rebound - LYMPHATIC Lymphatic: no adenopathy - MUSCULOSKELETAL Back Exam: normal inspection Extremity: normal range of motion - SKIN Integumentary: normal color, normal turgor, warm/dry - NEUROLOGIC Neurologic: grossly normal - PSYCHIATRIC Psych/Mental Status: oriented x 3, anxious Progress - PLAN OF CARE/RESULTS Progress/Plan/Lab Results: Vital Signs - 8 hr 05/14/19 00:20 Temperature 98.7 F Pulse Rate 103 H Respiratory Rate 20 Blood Pressure 156/108 O2 Sat by Pulse Oximetry 100 Orders Category Date Time Status Saline Loc DIRECTED Care 05/14/19 00:17 Active NPO Diet 05/14/19 00:[address] ABD/PELVIS W/IV CONT ONLY [CT] Stat Exams 05/14/19 01:04 Ordered AMYLASE [CHEM] Stat Lab 05/14/19 00:17 Uncollected CBC WITH ELECTRONIC DIFF [HEME] Stat Lab 05/14/19 00:17 Uncollected COMPREHENSIVE METABOLIC PANEL [CHEM] Stat Lab 05/14/19 00:17 Uncollected LIPASE [CHEM] Stat Lab 05/14/19 00:17 Uncollected URINALYSIS W/POSS RFLX CULT [URINALYSIS] Stat Lab 05/14/19 00:17 Uncollected 0.9% Sodium Chloride Inj [Ns] 1,000 ml Med 05/14/19 00:17 Active IV 999 mls/hr Hydromorphone [Dilaudid] Med 05/14/19 01:03 Discontinued 1 mg IV NOW ONE Ondansetron [Zofran] Med 05/14/19 00:18 Discontinued 4 mg IV NOW ONE Ondansetron [Zofran] Med 05/14/19 01:04 Discontinued 4 mg IV NOW ONE Result Diagrams: 05/14/19 01:24 05/14/19 01:24 - REASSESSMENT Reassessment #1 Time Reassessed: 07:34 Status: unchanged (shift change assessment: pt has laboratory as well as imaging (CT) evidence of acute pancreatitis; her amylase and lipase were wnl 1 mo ago. she is s/p dada'x, denies Etoh use, is on opiate maintenance. will consult Hospitalist for admit. currently in afib w/ RVR: IVF ordered, mag ordered.) - CONSULTS/PCP/HOSPITALIST Notification #1 *Consult/PCP/Hospitalist*: Eileen Time Discussed: 07:40 Consult Disposition: Admit - CHANGE OF SHIFT REPORT (ED Provider) 1 Report Given and Care Transferred to:: Dr. Terrell Time of Transfer: 07:00 Items Pending: Labs, CT/MRI Results Departure - Departure Date of Disposition Decision: 05/14/19 Time of Disposition Decision: 07:49 DIAGNOSIS: Acute pancreatitis, Atrial fibrillation with rapid ventricular response Disposition: ADMITTED INPATIENT 09 Certified Medical Emergency: Emergent Condition: Serious Referrals and Follow-Ups: Azam Roa MD [Primary Care Provider] - - Critical Care Note This patient required my direct & personal management of CC.: No Attestation - Physician/ TYREE Attestation The physician spent face to face time with patient:: Yes Advanced Practice Provider documentation review:: Supervising physician onsite and consulted in the evaluation and care of this patient. The physician did have a face to face encounter with the patient.
[2019-05-14 01:43] LABS: BASO# 0.01 X1000 (0.0-0.2); BASO% 0.1 % (0.0-0.8); HEMATOCRIT 39.4 % (37.0-47.0); HEMOGLOBIN 12.8 g/dL (12.0-16.0); IMM GRAN# 0.04 X1000 (0.0-0.04); IMM GRAN% 0.3 % (0.0-0.5); LYMPH# 2.03 X1000 (1.2-3.4); LYMPH% 14.2 % (20.5-51.1); MCH 29.8 PG (27-31); MCHC 32.5 g/dL (33-37); MCV 91.8 FL (81-99); MONO# 1.11 X1000 (0.11-0.59); MONO% 7.8 % (1.7-9.3); MPV 10.8 FL (7.4-10.4); NEUT# 11.13 X1000 (1.4-6.5); NEUT% 77.6 % (42.2-75.2); PLT 296 X1000 (130-400); RBC 4.29 XMIL (4.2-5.4); RDW 13.6 % (11.5-14.5); WBC 14.32 X1000 (4.8-10.8)
[2019-05-14 02:20] LABS: ALB/GLOB RATIO 1.2; ALBUMIN 3.5 g/dL (3.5-5.0); CALCIUM 9.4 mg/dL (8.8-10.2); CK INDEX 1.8 (0.0-2.5); CK-MB 3.35 ng/mL (0.0-5.0); CREATININE 1.4 mg/dL (0.5-0.9); POTASSIUM 3.6 mmol/L (3.5-5.1); TOTAL BILIRUBIN 0.43 mg/dL (0.20-1.00); TOTAL PROTEIN 6.4 g/dL (6.3-8.3)
--- NOTE | 2019-05-14 04:35 | EKG Report ---
Test Performed on : 05/14/2019 02:11:23 AM Test Reason : pain Blood Pressure : / mmHG Vent. Rate : 128 BPM Atrial Rate : 122 BPM P-R Int : 160 ms QRS Dur : 066 ms QT Int : 316 ms P-R-T Axes : 000 -09 045 degrees QTc Int : 461 ms Undetermined rhythm Nonspecific ST and T wave abnormality Abnormal ECG When compared with ECG of 02-JUN-2017 05:37, Current undetermined rhythm precludes rhythm comparison, needs review T wave inversion no longer evident in Inferior leads Inverted T waves have replaced nonspecific T wave abnormality in Lateral leads Unconfirmed Result
[2019-05-14 07:27] LABS: URINE SOURCE CLEAN CATCH
[2019-05-14 07:46] LABS: BILIRUBIN URINE NEGATIVE (NEGATIVE); BLOOD URINE TRACE (NEGATIVE); COLOR YELLOW; GLUCOSE URINE NEGATIVE (NEGATIVE); KETONE URINE TRACE mg/dL (NEGATIVE); LEUKOCYTES URINE LARGE (NEGATIVE); NITRITE URINE NEGATIVE (NEGATIVE); PH URINE 6.5; PROTEIN URINE 30 mg/dL (NEGATIVE); SP GRAVITY URINE 1.028; TURBIDITY URINE CLEAR (CLEAR); UROBILINOGEN URINE NORMAL (NORMAL)
[2019-05-14] MEDS ORDERED: ATIVAN IM ONE (08:01)
[2019-05-14] MEDS ORDERED: APRESOLINE IV ONE (08:22)
[2019-05-14] MEDS ORDERED: SODIUM CHLORIDE 0.9% INJ PRN (08:26)
[2019-05-14] MEDS ORDERED: PHENERGAN IV PRN (08:26)
[2019-05-14] MEDS ORDERED: ZOFRAN IV PRN (08:26)
[2019-05-14] MEDS ORDERED: TYLENOL PO PRN (08:26)
[2019-05-14] MEDS ORDERED: ATIVAN IV ONE (08:45)
[2019-05-14 08:48] LABS: UR EPITHELIAL CELLS <10 /HPF (<10); URINE BACTERIA NEGATIVE /HPF; URINE RBC <10 /HPF (<10); URINE WBC TNTC /HPF (<10)
[2019-05-14 08:52] LABS: URINE YEAST PRESENT
[2019-05-14] MEDS ORDERED: LEXAPRO PO SCH (09:00)
[2019-05-14] MEDS: CARDIZEM CD PO SCH (09:16)
[2019-05-14] MEDS: LOPRESSOR PO SCH ×3 (09:16→20:03)
[2019-05-14] MEDS: KEPPRA PO SCH ×2 (09:16→20:03)
[2019-05-14] MEDS: XANAX PO SCH ×2 (09:16→20:03)
--- NOTE | 2019-05-14 09:24 | Diag Imaging Result Doc PS360 ---
EXAM: CT ABD/PELVIS W/IV CONT ONLY INDICATION: abdominal pain TECHNIQUE: This exam was performed using automated exposure control, adjustment of mA or kV according to patient size, and/or use of iterative reconstruction technique. COMPARISON: 04/18/2019 FINDINGS: There is right lower lobe groundglass airspace consolidation indicating pneumonia. There is mild scarring at both lower lobes. There has been a prior cholecystectomy. There is prominent intrahepatic and extrahepatic biliary dilatation that appears stable. No radiopaque ductal stone is appreciated. The liver is grossly unremarkable, otherwise. The spleen is unremarkable. There are stable bilateral adrenal adenomas. The pancreas is somewhat atrophic. There is a small amount of free fluid adjacent to the pancreas. This may simply represent adjacent small volume ascites. Correlate clinically to exclude pancreatitis. There is stable bilateral nonobstructive nephrolithiasis. There are bilateral renal cortical defects suggesting cortical scarring, stable. There are a few tiny renal cysts bilaterally. An extrarenal pelvises noted on the left, stable. There is no evidence of hydronephrosis. The urinary bladder is unremarkable. There has been a prior hysterectomy. There is moderate diverticulosis coli with no evidence of diverticulitis. There are surgical changes related to a prior appendectomy. No focal bowel wall thickening or bowel obstruction is appreciated. The GI tract is grossly unremarkable, otherwise. There is extensive aortoiliac atherosclerotic calcification but no evidence of aneurysm. There are lumbar spine degenerative changes. There is no evidence of acute osseous abnormality. IMPRESSION: 1.Consolidation in the right lower lobe at the lung bases suggesting pneumonia. 2.Stable prominent intrahepatic and extrahepatic biliary dilatation. 3.Small amount of free fluid adjacent to the pancreas which may simply represent trace adjacent ascites. Correlate clinically to exclude mild acute pancreatitis. 4.Other incidental/nonacute findings detailed above. Electronically signed by Caden Roberts 05/14/2019 9:21 AM
[2019-05-14] MEDS: PRILOSEC PO SCH ×2 (09:26→20:03)
[2019-05-14] MEDS: NS 1,000 ML IV SCH ×4 (09:27→21:55)
[2019-05-14] MEDS ORDERED: ZOSYN 3.375 GM in NS 50 ML IV SCH (10:00)
--- NOTE | 2019-05-14 10:23 | HISTORY AND PHYSICAL ---
PRIMARY CARE PROVIDER: Dr. Azam Roa. CHIEF COMPLAINT: Left upper quadrant abdominal pain. HISTORY OF PRESENT ILLNESS: Ms. Meg Dan is a 58-year-old female, who states that her left upper quadrant abdominal discomfort started around 2 weeks ago. She is confused and agitated, so it is difficult to get information from her. She was even seen for urinary tract infection back in early April, about a month ago. She states she has been having vomiting and emesis, but has worsened over the last 3 days. She also has a history of chronic back pain, seizure disorder and atrial fibrillation. Right now, she is tachycardic with her atrial fibrillation; it is likely secondary to dehydration. She has not had a lot of p.o. intake. Complains of some chills. Denies fever. She has been very agitated while she was in the emergency department, pulling out two IVs, cussing at the nurses. So on top of Dilaudid for the pain control, she has also received Ativan, and she is more calm at this moment. PAST MEDICAL HISTORY: 1. Multiple kidney stones with kidney stone removal. 2. Chronic atrial fibrillation. 3. Morbid obesity with a history of gastric bypass surgery that was successful 15 to 16+ years ago. 4. Hypertension. 5. Diabetes mellitus type 2. 6. Seizure disorder. 7. Nephrolithiasis. SURGICAL HISTORY: 1. Romy-en-Y gastric bypass 16+ years ago. 2. Gastrectomy. 3. Hysterectomy. 4. Exploratory laparotomy with repair of internal hernia done there at the hospital after the Romy-en-Y. 5. She has had exploratory lap twice I believe. SOCIAL HISTORY: Denies tobacco, alcohol or illicit drug use. She states she lives with her son, but was unable to tell me his age. FAMILY HISTORY: Denies. ALLERGIES: No known drug allergies. HOME MEDICATIONS: 1. Metoprolol 25 mg p.o. every 6 hours. 2. Cardizem 180 mg p.o. daily. 3. Keppra 1500 mg p.o. twice daily. 4. Lexapro 20 mg p.o. daily. 5. [place] 1 tablet p.o. t.i.d. p.r.n. 6. Xanax 1 mg p.o. twice daily. REVIEW OF SYSTEMS: Fourteen point review of systems are complete and all were negative, except for those mentioned above in the HPI. PHYSICAL EXAM: VITALS: Temperature 97.6 degrees, heart rate 118, respiratory rate 20, blood pressure 143/107, O2 saturation 95% on room air. The patient is 5 feet 7 inches tall, 105 pounds, BMI 16.5. GENERAL: Ms. Meg Dan is a 58-year-old female. She is agitated. She will answer some questions appropriately, but mostly just confused. HEENT: Atraumatic, normocephalic. Pupils equal, round, reactive to light. Extraocular movements intact. Mucous membranes are dry. NECK: Trachea midline. CARDIOVASCULAR: Irregularly irregular. Tachycardic rate and rhythm. No rubs, gallops, murmurs. No lower extremity edema. +2 dorsalis and radial pulses. Negative JVD or carotid bruits. PULMONARY: Clear to auscultation. Bilateral breath sounds. No accessory muscle use or work of breathing noted. GI: Soft, tender in the bilateral upper quadrants. Hypoactive bowel sounds. EXTREMITIES: Moves all extremities equally. Full range of motion. NEUROLOGIC: A and O x1 only, mostly confused and agitated. Normal sensory. SKIN: Warm, dry, intact. LABORATORY DATA: White blood cells 14,000, hemoglobin 12, hematocrit 39, platelet count 296. Sodium 140, potassium 3.6. BUN 20, creatinine is 1.4, glucose 87, calcium 9.4 magnesium 1.7, bilirubin 0.43. AST 22, ALT 15, CK 182, troponin less than 0.01. Albumin 3.5, triglycerides 84, total cholesterol 123, HDL 67, amylase 494 and lipase 590. Urinalysis 30 protein, trace ketones, trace blood, large leukocytes, too numerous to count white blood cells. Alcohol level zero. IMAGING: Abdominal pelvic CT preliminary report: Suboptimal exam secondary to patient positioning and overlying leads. Small free fluid adjacent to the pancreas which may be secondary to acute pancreatitis versus small abdominal ascites. Distended urinary bladder. Right lower lobe ground-glass opacities consistent with pneumonia or aspiration pneumonitis. EKG: Atrial fibrillation with a rapid ventricular response. Rate is 128. QTc is 461. ASSESSMENT/PLAN: 1. Acute pancreatitis, source unknown. Will do intravenous fluids, clear liquids, pain control and antiemetics. 2. Right lower lobe pneumonia with leukocytosis. Will start her on some Zosyn. 3. Acute kidney injury likely secondary to dehydration. Creatinine is 1.4; it should improve with fluids. 4. Encephalopathy likely metabolic. Possibly secondary to infection. The urine has white cells, but there is no bacteria. It does show some yeast, and she has a right lower lobe pneumonia with the acute kidney injury. She is confused. Hopefully should start to clear up over the next 24 hours. 5. Atrial fibrillation with a rapid ventricular response, likely induced due to agitation and dehydration. She is getting intravenous fluids. She has a normal ejection fraction according to her last echocardiogram, and she also has some pulmonary hypertension along with it. We will need to watch the fluids. 6. Diabetes mellitus type 2. We will do pattern blood glucoses and sliding scale insulin. 7. Seizure disorder. We will continue her Keppra. 8. Hypertension. We will continue her on her beta aj. 9. Deep venous thrombosis prophylaxis. Sequential compression devices. Dictated by JEFFREY Carreno for Norah Saab MD cc: JEFFREY Carreno MD I performed a face to face encounter on the patient. I reviewed all labs and imaging on the patient. I agree with the H&P as dictated. [facility]
[2019-05-14] MEDS: HUMULIN R SUBQ SCH ×3 (11:17→20:01)
[2019-05-14] MEDS: DILAUDID IV PRN (13:09)
[2019-05-14] MEDS: ROCEPHIN 1 GM in NS 50 ML IV SCH (17:43)
[2019-05-14] MEDS: ZITHROMAX 500 MG/NS 500 MG/250 ML IVPB IV SCH (20:02)
[2019-05-15] MEDS: NS 1,000 ML IV SCH ×2 (00:28→05:42)
--- NOTE | 2019-05-15 01:55 | ED EKG INTERP ---
This chart was entered by Nubia Montalvo Scribe, acting as scribe for Hari Paz MD. EKG Interpretation - EKG Time of EKG reading by physician:: 02:12 EKG Read and Signed by:: Hari Paz EKG Interpretation (*Must complete 3 of following elements*): Abnormal Rate: 128 Rhythm: A-fib w/ RVR [place]: normal QRS: normal ME Interval: normal ST Wave: non-specific ST changes Attestation - Physician/ TYREE Attestation Patient care was provided by Advanced Practice Provider:: No The physician spent face to face time with patient:: Yes Advanced Practice Provider documentation review:: Supervising physician onsite and consulted in the evaluation and care of this patient. The physician did have a face to face encounter with the patient. This chart was documented by the indicated scribe, (Nubia Montalvo Scribe) and accurately reflects the services I performed and decisions made by me, Hari Paz MD, as attested by the provider's signature.
[2019-05-15] MEDS: LOPRESSOR PO SCH ×4 (04:13→21:05)
[2019-05-15 05:39] LABS: BASO# 0.01 X1000 (0.0-0.2); BASO% 0.1 % (0.0-0.8); HEMATOCRIT 35.7 % (37.0-47.0); HEMOGLOBIN 11.4 g/dL (12.0-16.0); LYMPH# 1.28 X1000 (1.2-3.4); LYMPH% 13.3 % (20.5-51.1); MCH 29.4 PG (27-31); MCHC 31.9 g/dL (33-37); MONO# 0.81 X1000 (0.11-0.59); MONO% 8.4 % (1.7-9.3); MPV 10.8 FL (7.4-10.4); NEUT# 7.51 X1000 (1.4-6.5); NEUT% 78.2 % (42.2-75.2); PLT 230 X1000 (130-400); RBC 3.88 XMIL (4.2-5.4); RDW 13.8 % (11.5-14.5); WBC 9.61 X1000 (4.8-10.8)
[2019-05-15 05:49] LABS: INR 1.04; PROTIME 13.7 Seconds (11.0-16.0)
[2019-05-15 05:50] LABS: PTT 33.6 Seconds (22.3-41.8)
[2019-05-15 06:06] LABS: AGAP 10; ALB/GLOB RATIO 1.1; ALBUMIN 2.8 g/dL (3.5-5.0); ALKALINE PHOSPHATASE 76 U/L (32-104); AMYLASE 90 U/L (20-200); BUN 14 mg/dL (8-22); CALCIUM 8.2 mg/dL (8.8-10.2); CHLORIDE 111 mmol/L (98-107); COSMO 291; CREATININE 0.9 mg/dL (0.5-0.9); ESTIMATED GFR > 60; GLUCOSE 60 mg/dL (70-104); GOT 14 U/L (10-30); GPT 11 U/L (10-36); LIPASE 55 U/L (13-60); MAGNESIUM 1.6 mg/dL (1.5-2.7); POTASSIUM 3.1 mmol/L (3.5-5.1); SODIUM 147 mmol/L (136-145); TCO2 26 mmol/L (25-35); TOTAL BILIRUBIN 0.26 mg/dL (0.20-1.00); TOTAL PROTEIN 5.3 g/dL (6.3-8.3)
[2019-05-15] MEDS: HUMULIN R SUBQ SCH ×4 (06:07→21:05)
[2019-05-15] MEDS: PRILOSEC PO SCH ×3 (06:08→21:06)
[2019-05-15] MEDS ORDERED: MAGNESIUM SULFATE 2 GM/S.W.I. 2 GM/50 ML IVPB IV ONE (06:20)
[2019-05-15] MEDS ORDERED: KLOR-CON PO ONE (06:22)
[2019-05-15] MEDS: D5W 1,000 ML IV SCH ×2 (08:06→21:04)
[2019-05-15] MEDS: XANAX PO SCH ×2 (08:06→21:06)
[2019-05-15] MEDS: KEPPRA PO SCH ×2 (08:06→21:04)
[2019-05-15] MEDS: CARDIZEM CD PO SCH (08:06)
--- NOTE | 2019-05-15 08:48 | EKG Report ---
Test Performed on : 05/15/2019 06:32:48 AM Test Reason : afib Blood Pressure : / mmHG Vent. Rate : 077 BPM Atrial Rate : 166 BPM P-R Int : 000 ms QRS Dur : 086 ms QT Int : 394 ms P-R-T Axes : 000 -34 025 degrees QTc Int : 445 ms Atrial fibrillation. Left axis deviation Possible Anterior infarct , age undetermined Abnormal ECG When compared with ECG of 14-MAY-2019 02:11, (Unconfirmed) Previous ECG has undetermined rhythm, needs review Non-specific change in ST segment in Lateral leads Nonspecific T wave abnormality now evident in Inferior leads T wave inversion no longer evident in Lateral leads Confirmed by Lia RICE, Ralf Busby ([id number]) on 05/15/2019 9:43:16 PM
[2019-05-15] MEDS: NORCO-10 PO PRN ×2 (11:24→21:03)
--- NOTE | 2019-05-15 14:13 | PROGRESS NOTE ---
DATE: 05/15/2019 SUBJECTIVE: The patient states that she feels a little bit better today but she reports that she has no appetite. She denies having any nausea, vomiting, or abdominal pain. OBJECTIVE: Vital Signs: Temperature 98 degrees, blood pressure 123/86, heart rate 84, respirations 17, O2 saturation is 100% on room air. General: This is a chronically ill- appearing, elderly female, lying in bed, in no acute distress. Heart: S1, S2 normal. Lungs: Clear to auscultation bilaterally. No wheezing. No rales. No rhonchi. Abdomen: Positive bowel sounds. Soft, nontender, nondistended. Extremities: No edema, no cyanosis. Neurologic: The patient is alert and oriented x4. Labs: White blood cell count 9.6, hemoglobin 11, hematocrit 35, platelets 230,000. Sodium 147, potassium 3.1, chloride 111, CO2 of 26, BUN 14, creatinine 0.9, glucose 72, magnesium 1.6. ASSESSMENT AND PLAN: 1. Acute pancreatitis. Slowly resolving. We will advance the patient to a GI soft diet. 2. Right lobe pneumonia. Continue with antibiotics, bronchodilator therapy, and incentive spirometry. 3. History of gastric bypass. Aware. 4. Seizure disorder. Continue on Keppra. 5. Chronic atrial fibrillation. Continue on Cardizem. 6. Anxiety disorder. Continue on Xanax. 7. Situational depression. Continue on Lexapro. 8. Hypernatremia. We will start the patient on D5W and monitor the sodium closely. 9. Hypokalemia. Will replace the potassium. 10. Hypomagnesemia. Will replace the magnesium. 11. Deep vein thrombosis prophylaxis. We will start the patient on Lovenox. 12. Disposition. The patient is stable to transfer to the medical floor. Physical therapy has been consulted to mobilize the patient. cc: Norah Saab MD MTDD
[2019-05-15] MEDS: LOVENOX SUBQ SCH (16:06)
[2019-05-15] MEDS: ROCEPHIN 1 GM in NS 50 ML IV SCH (16:06)
[2019-05-15] MEDS: ZITHROMAX 500 MG/NS 500 MG/250 ML IVPB IV SCH (21:52)
[2019-05-16] MEDS: LOPRESSOR PO SCH ×4 (02:22→22:32)
[2019-05-16] MEDS: HUMULIN R SUBQ SCH ×4 (06:29→22:58)
[2019-05-16] MEDS: PRILOSEC PO SCH ×2 (06:55→22:32)
[2019-05-16] MEDS: NORCO-10 PO PRN ×3 (06:56→22:31)
[2019-05-16 07:34] LABS: BASO# 0.01 X1000 (0.0-0.2); BASO% 0.1 % (0.0-0.8); EOS# 0.02 X1000 (0.0-0.7); EOS% 0.2 % (0.0-10.0); HEMATOCRIT 36.8 % (37.0-47.0); HEMOGLOBIN 11.7 g/dL (12.0-16.0); IMM GRAN# 0.02 X1000 (0.0-0.04); IMM GRAN% 0.2 % (0.0-0.5); LYMPH# 1.47 X1000 (1.2-3.4); LYMPH% 14.1 % (20.5-51.1); MCH 29.2 PG (27-31); MCHC 31.8 g/dL (33-37); MCV 91.8 FL (81-99); MONO# 0.78 X1000 (0.11-0.59); MONO% 7.5 % (1.7-9.3); NEUT# 8.16 X1000 (1.4-6.5); NEUT% 77.9 % (42.2-75.2); PLT 216 X1000 (130-400); RBC 4.01 XMIL (4.2-5.4); RDW 13.6 % (11.5-14.5); WBC 10.46 X1000 (4.8-10.8)
[2019-05-16 08:10] LABS: AGAP 10; ALBUMIN 2.6 g/dL (3.5-5.0); ALKALINE PHOSPHATASE 67 U/L (32-104); BUN 9 mg/dL (8-22); CALCIUM 8.6 mg/dL (8.8-10.2); CHLORIDE 108 mmol/L (98-107); COSMO 276; CREATININE 0.8 mg/dL (0.5-0.9); ESTIMATED GFR > 60; GLUCOSE 59 mg/dL (70-104); GOT 12 U/L (10-30); GPT 11 U/L (10-36); MAGNESIUM 1.7 mg/dL (1.5-2.7); POTASSIUM 3.4 mmol/L (3.5-5.1); SODIUM 140 mmol/L (136-145); TCO2 22 mmol/L (25-35); TOTAL BILIRUBIN 0.27 mg/dL (0.20-1.00); TOTAL PROTEIN 5.3 g/dL (6.3-8.3)
[2019-05-16] MEDS: CARDIZEM CD PO SCH (08:25)
[2019-05-16] MEDS: ASPIRIN PO SCH (08:25)
[2019-05-16] MEDS: XANAX PO SCH ×2 (08:25→22:32)
[2019-05-16] MEDS: KEPPRA PO SCH ×2 (08:25→22:31)
--- NOTE | 2019-05-16 10:01 | Diag Imaging Result Doc PS360 ---
EXAM: CHEST-2 VIEWS HISTORY: pneumonia TECHNIQUE: Chest two views COMPARISON: 06/02/2017 FINDINGS: The lungs are hyperexpanded. The heart is not enlarged. The vessels are not distended. There are no infiltrates. No pleural effusions. There are several old rib fractures. Mild scoliosis. IMPRESSION: No pneumonia Electronically signed by Srikanth Perez 05/16/2019 9:59 AM
[2019-05-16] MEDS ORDERED: KLOR-CON PO ONE (13:03)
[2019-05-16] MEDS: D5W 1,000 ML IV SCH (13:26)
--- NOTE | 2019-05-16 13:37 | PROGRESS NOTE ---
DATE: 05/16/2019 SUBJECTIVE: As per the patient, she is feeling a little bit better today. She denies any nausea, vomiting, or diarrhea. She does have epigastric pain and left lower quadrant pain. As per the patient, the epigastric pain travels to her back. She has been admitted due to pneumonia and pancreatitis. Her abdomen is soft. She has been tolerating a little bit of p.o. Physical Therapy on board. Probably, this patient can be discharged in the next 24 to 48 hours. Chest x- ray showed no pneumonia today, but CT scan done 2 days ago upon admission showed a right lower lobe consolidation suggesting pneumonia. OBJECTIVE: Vital Signs: Temperature 98.6 degrees, pulse 91, respiratory rate 19, blood pressure 131/82, oxygen saturation 100% on room air. HEENT: Head normocephalic. No trauma. PERRLA. Neck: Supple. No JVD. No masses. Central trachea. Chest: Clear to auscultation. Some crepitus at the right base. No wheezing. No rales. Abdomen: Soft. Tenderness to palpation at the level of the epigastric area and left lower quadrant. Positive bowel sounds. No signs of peritoneal irritation. Extremities: No edema, no clubbing, no cyanosis. Neurological: The patient is alert. She is oriented x4. No focal deficit, but some generalized weakness. LABORATORY DATA: WBC 10.4, hemoglobin 11.7, hematocrit 36.8, platelet count 216,000. Sodium 140, potassium 3.4, chloride 108, bicarbonate 22, BUN 9, creatinine 0.8, glucose 59, calcium 8.6. Magnesium 1.7. AST 12, ALT 11, alkaline phosphatase 67, albumin 2.6. ASSESSMENT AND PLAN: 1. Acute pancreatitis. I believe this is getting better. She is tolerating a little bit, her diet. She is not complaining of nausea or vomiting. 2. Right lower lobe pneumonia. Continue with antibiotics, bronchodilator therapy, and oxygen supplementation as needed. 3. History of gastric bypass. Aware. 4. History of seizure disorder. Continue with Keppra. 5. Chronic atrial fibrillation. Continue with Cardizem. I do not see any anticoagulation on board at home, and she does not know if she is taking it. For now, will continue with Lovenox daily. 6. Anxiety disorder. Continue with Xanax. 7. Situational depression. Continue with Lexapro. 8. Hypernatremia, resolved. 9. Hypokalemia. I will replace the potassium today. 10. Hypomagnesemia, resolved. 11. Deep vein thrombosis prophylaxis with Lovenox. 12. Disposition. This patient seems to be more stable. As per the patient, her abdominal pain is better compared with admission. She is tolerating a little bit by mouth. Hopefully, she can be discharged in the next 24 to 48 hours. cc: Han Alas MD
[2019-05-16] MEDS: LOVENOX SUBQ SCH (15:07)
[2019-05-16] MEDS: ROCEPHIN 1 GM in NS 50 ML IV SCH (16:41)
[2019-05-16] MEDS: ZITHROMAX 500 MG/NS 500 MG/250 ML IVPB IV SCH (22:54)
[2019-05-17] MEDS: LOPRESSOR PO SCH ×3 (02:20→15:00)
[2019-05-17] MEDS: NORCO-10 PO PRN ×3 (02:21→11:48)
[2019-05-17] MEDS: DILAUDID IV PRN (06:15)
[2019-05-17] MEDS: PRILOSEC PO SCH (06:15)
[2019-05-17] MEDS: HUMULIN R SUBQ SCH ×2 (06:21→11:31)
[2019-05-17 07:14] LABS: BASO# 0.01 X1000 (0.0-0.2); BASO% 0.1 % (0.0-0.8); EOS# 0.02 X1000 (0.0-0.7); EOS% 0.2 % (0.0-10.0); HEMATOCRIT 34.3 % (37.0-47.0); IMM GRAN# 0.03 X1000 (0.0-0.04); IMM GRAN% 0.3 % (0.0-0.5); LYMPH# 1.23 X1000 (1.2-3.4); LYMPH% 13.6 % (20.5-51.1); MCH 29.7 PG (27-31); MCHC 32.1 g/dL (33-37); MCV 92.7 FL (81-99); MONO# 0.75 X1000 (0.11-0.59); MONO% 8.3 % (1.7-9.3); MPV 10.6 FL (7.4-10.4); NEUT# 6.98 X1000 (1.4-6.5); NEUT% 77.5 % (42.2-75.2); PLT 223 X1000 (130-400); RDW 13.7 % (11.5-14.5); WBC 9.02 X1000 (4.8-10.8)
[2019-05-17 07:39] LABS: AGAP 8; ALB/GLOB RATIO 0.9; ALBUMIN 2.5 g/dL (3.5-5.0); ALKALINE PHOSPHATASE 69 U/L (32-104); BUN 10 mg/dL (8-22); CALCIUM 8.5 mg/dL (8.8-10.2); CHLORIDE 109 mmol/L (98-107); COSMO 282; CREATININE 0.8 mg/dL (0.5-0.9); ESTIMATED GFR > 60; GLUCOSE 60 mg/dL (70-104); GOT 11 U/L (10-30); GPT 9 U/L (10-36); MAGNESIUM 1.6 mg/dL (1.5-2.7); POTASSIUM 4.1 mmol/L (3.5-5.1); SODIUM 143 mmol/L (136-145); TCO2 26 mmol/L (25-35); TOTAL BILIRUBIN 0.26 mg/dL (0.20-1.00); TOTAL PROTEIN 5.3 g/dL (6.3-8.3)
[2019-05-17] MEDS: XANAX PO SCH (09:18)
[2019-05-17] MEDS: KEPPRA PO SCH (09:19)
[2019-05-17] MEDS: CARDIZEM CD PO SCH (09:19)
[2019-05-17] MEDS: ASPIRIN PO SCH (09:19)
[2019-05-17 14:46] VITALS: BP 102/58
[2019-05-17] MEDS: LOVENOX SUBQ SCH (15:00)
--- NOTE | 2019-05-17 16:47 | DISCHARGE SUMMARY ---
ADMISSION DATE: 05/14/2019 DISCHARGE DATE: 05/17/2019 DISCHARGE DIAGNOSES: 1. Acute pancreatitis, resolved. 2. Right lower lobe pneumonia. 3. History of gastric bypass. 4. History of seizure disorder. 5. Chronic atrial fibrillation. 6. Anxiety disorder. 7. Situational depression. 8. Electrolyte imbalance. PROCEDURES PERFORMED: 1. Abdomen and pelvis CT scan dated 05/14/2019, impression: Consolidation in the right lower lobe at the lung bases suggesting pneumonia, stable prominent intrahepatic and extrahepatic biliary dilatation, a small amount of free fluid adjacent to the pancreas which may simply represent ascites, correlate clinically to exclude mild acute pancreatitis. 2. Chest x-ray dated 05/16/2019, impression: No pneumonia. HOSPITAL COURSE: A 58-year-old female with a past medical history of kidney stones, chronic atrial fibrillation, morbid obesity with a history of gastric bypass surgery, hypertension, diabetes, seizure disorder, nephrolithiasis, admitted on 05/14/2019 with a chief complaint of left upper quadrant abdominal discomfort that started around 2 weeks ago she was confused and agitated and difficult to get any kind of information from her. She was seen for an urinary tract infection back in early April, apparently she has been having vomiting that has been worsening for the past 3 days prior to admission, history of chronic pain as well. She looked at time dehydrated and complaining also of some she chills but she denied fever. Because of the agitation and the pain, she received a dose of pain medication and also Ativan and she felt better. She was admitted and a CT scan showed the possibility of pancreatitis, and also a right lower lobe pneumonia. We started this patient on antibiotics and IV fluids as well. This patient's minutes mental status improved and now she was alert and oriented x3 with no focal deficits. She was getting better on a daily basis. The abdominal pain was improving. The pancreatic enzymes which initially where elevated normalized. Her pneumonia also was getting better and her last x-ray dated 05/16/2019 did not show any infiltrates. That was only on the CT scan. Today this patient is better. She is tolerating p.o. She is still complaining of some pain but much better compared with admission. She will be discharged home. She will continue the course of her antibiotics to treat the pneumonia, and basically she will continue with her home medications. PHYSICAL EXAMINATION: Vital Signs: Temperature 98.3 degrees, pulse 80, respiratory rate 18, blood pressure 102/58, oxygen saturation 96 on room air. HEENT: Normocephalic, no trauma. PERRLA. Neck: Supple. No JVD. No masses. Central trachea. Chest: Clear to auscultation, some crepitus at the right base. No wheezing. No rales. Abdomen: Soft. Some tenderness to palpation at the level of the epigastric area. Positive bowel sounds. No signs of peritoneal irritation. Extremities: No edema, no clubbing, no cyanosis. Neurological: The patient is alert. She is oriented x3. No focal deficits. LABORATORY: WBC 9, hemoglobin 11.0, hematocrit 34.3, platelets 223,000. Sodium 143, potassium 4.1, chloride 109, bicarbonate 26, BUN 10, creatinine 0.8, glucose 60, calcium 8.5, AST 11, ALT 9, alkaline phosphatase 69, albumin 2.5. DISCHARGE MEDICATIONS: 1. Acetaminophen 650 mg p.o. q.6 hours as needed for fever. 2. Xanax 1 tablet p.o. b.i.d. 3. Azithromycin 250 mg p.o. daily to complete 5 days. 4. Keflex 500 mg p.o. b.i.d. to complete 7 days. 5. Diltiazem 180 mg p.o. daily. 6. Lexapro 10 to 20 mg p.o. daily. 7. [place] 10 one tablet p.o. t.i.d. as needed for pain. 8. Keppra 1500 mg p.o. b.i.d.. 9. Metoprolol 1 tablet p.o. q.6 hours, 35 mg. 10. Omeprazole 40 mg p.o. daily. 11. She will continue basically with her home medications. I just will add antibiotics. TIME SPENT: Discharging this patient 20 minutes. cc: Han Alas MD
== END 2019-05-17 15:18 | disposition home or self-care (01) | DRG 871 ==
LOC: SUATTDRO → ED 00:05 → SUATTDRO 08:42 → 2N 08:42 → 3N 05-15 13:52
PROVIDERS: ATTEND Internal Medicine

== ENCOUNTER 2019-09-01 13:24 | Observation (INO) ==
[2019-09-01] MEDS ORDERED: NS 1,000 ML IV ONE (13:58)
[2019-09-01 14:43] LABS: BASO# 0.03 X1000 (0.0-0.2); BASO% 0.4 % (0.0-0.8); EOS# 0.01 X1000 (0.0-0.7); EOS% 0.1 % (0.0-10.0); HEMATOCRIT 39.9 % (37.0-47.0); HEMOGLOBIN 12.3 g/dL (12.0-16.0); IMM GRAN# 0.02 X1000 (0.0-0.04); IMM GRAN% 0.3 % (0.0-0.5); LYMPH# 1.19 X1000 (1.2-3.4); LYMPH% 15.6 % (20.5-51.1); MCH 28.9 PG (27-31); MCHC 30.8 g/dL (33-37); MCV 93.7 FL (81-99); MONO# 0.53 X1000 (0.11-0.59); MPV 10.3 FL (7.4-10.4); NEUT# 5.83 X1000 (1.4-6.5); NEUT% 76.6 % (42.2-75.2); PLT 326 X1000 (130-400); RBC 4.26 XMIL (4.2-5.4); WBC 7.61 X1000 (4.8-10.8)
[2019-09-01] MEDS ORDERED: THIAMINE 100 MG in NS 50 ML IV ONE (14:45)
[2019-09-01 14:57] LABS: INR 0.94
[2019-09-01 14:58] LABS: PTT 28.6 Seconds (22.3-41.8)
[2019-09-01 15:01] LABS: UR AMPHETAMINES QUAL NONE DETECTED (NONE DETECT); UR BARBITUATES QUAL NONE DETECTED (NONE DETECT)
[2019-09-01 15:02] LABS: UR BENZODIAZEPIN QUAL PRESUMPTIVE POSITIVE (NONE DETECT); UR CANNABINOIDS QUAL PRESUMPTIVE POSITIVE (NONE DETECT); UR COCAINE QUAL NONE DETECTED (NONE DETECT); UR METHADONE QUAL NONE DETECTED (NONE DETECT); UR METHAMPHETAMINE QUAL NONE DETECTED (NONE DETECT); UR OPIATES QUAL PRESUMPTIVE POSITIVE (NONE DETECT); UR OXYCODONE QUAL PRESUMPTIVE POSITIVE (NONE DETECT); UR PCP QUAL NONE DETECTED (NONE DETECT); UR PROPOXYPHENE QUAL NONE DETECTED (NONE DETECT); UR TCA QUAL NONE DETECTED (NONE DETECT)
[2019-09-01 15:22] LABS: ALBUMIN 3.6 g/dL (3.5-5.0); CALCIUM 9.3 mg/dL (8.8-10.2); CREATININE 1.1 mg/dL (0.5-0.9); MAGNESIUM 1.9 mg/dL (1.5-2.7); PHOSPHORUS 2.6 mg/dL (2.7-4.5); POTASSIUM 3.5 mmol/L (3.5-5.1); TOTAL BILIRUBIN 0.3 mg/dL (0.20-1.00); TOTAL PROTEIN 6.2 g/dL (6.3-8.3)
--- NOTE | 2019-09-01 15:29 | EKG Report ---
Test Performed on : 09/01/2019 3:04:08 PM Test Reason : weakness Blood Pressure : / mmHG Vent. Rate : 091 BPM Atrial Rate : 241 BPM P-R Int : 000 ms QRS Dur : 070 ms QT Int : 344 ms P-R-T Axes : 000 -20 -01 degrees QTc Int : 423 ms Atrial fibrillation. with a competing junctional pacemaker. Septal infarct (cited on or before 15-MAY-2019) Abnormal ECG When compared with ECG of 15-MAY-2019 06:32, Questionable change in initial forces of Anteroseptal leads ST elevation now present in Lateral leads Unconfirmed Result
--- NOTE | 2019-09-01 15:29 | Diag Imaging Result Doc PS360 ---
EXAM: CHEST-PORTABLE 09/01/2019 HISTORY: weakness, falling TECHNIQUE: Erect AP portable at 1524 COMMENT: There are some small granulomata in the right upper lobe. There is no evidence of acute cardiac or pulmonary disease. Compared to 05/16/2019 there has been no significant change. There are old rib fractures. IMPRESSION: Stable chest. Electronically signed by Deacon Schmidt 09/01/2019 3:27 PM
--- NOTE | 2019-09-01 15:47 | Diag Imaging Result Doc PS360 ---
EXAM : CT LUMBAR SPINE W/O CONTRAST HISTORY: fall TECHNIQUE: CT lumbar spine without contrast COMPARISON: None. Plain films are recommended prior to CT. FINDINGS: Mild scoliosis. Multiple vacuum discs. Moderate degenerative bone spurring. No fracture. No subluxation. The bones are osteopenic. Prominent stool in colon. IMMPRESSION: No acute fracture. This exam was performed using automated exposure control, adjustment of mA or kV according to patient size, and/or use of iterative reconstruction technique. Electronically signed by Srikanth Perez 09/01/2019 3:45 PM
--- NOTE | 2019-09-01 15:47 | Diag Imaging Result Doc PS360 ---
EXAM: CT HEAD W/O CONTRAST 09/01/2019 HISTORY: weakness bilateral legs TECHNIQUE: This exam was performed using automated exposure control, adjustment of mA or kV according to patient size, and/or use of iterative reconstruction technique. COMMENT: There is no evidence of mass effect, bleed, or abnormal extra-axial fluid collection. The calvarium is intact. The visualized paranasal sinuses are clear. Compared to the previous examination of 05/30/2017, there has been no significant change. IMPRESSION: No evidence of acute intracranial disease. Electronically signed by Deacon Schmidt 09/01/2019 3:45 PM
--- NOTE | 2019-09-01 15:54 | PROVIDER DOCUMENTATION ---
This chart was entered by Yolie Levine Scribe, acting as scribe for Bud Kelsey MD. HPI-General Adult - General Chief Complaint: Fall Stated Complaint: WEAKNESS Time Seen by Provider: 09/01/19 13:41 Source: patient, family (son) Allergies/Adverse Reactions: Patient Allergies Allergy/AdvReac Type Severity Reaction Status Date / Time No Known Allergies Allergy Verified 09/01/19 14:41 Home Medications: Home Medication List Medication Instructions Recorded Confirmed Last Taken Type Diltiazem HCl [Cartia Xt] 180 mg PO DAILY 03/26/19 09/01/19 05/12/19 History Escitalopram [Lexapro] 10 - 20 mg PO DAILY 03/26/19 09/01/19 05/12/19 History Alprazolam [Xanax] 1 tab PO BID 05/14/19 09/01/19 05/12/19 History Levetiracetam [Keppra] 3 tab PO BID 05/14/19 09/01/19 05/13/19 History Acetaminophen [Tylenol] 650 mg PO Q6H PRN PRN tab 05/17/19 09/01/19 Unknown Rx Hydrocodone/Acetaminophen [[place] 1 tab PO TID PRN #10 tab 05/17/19 09/01/19 Unk nown Rx 10-325 Tablet] Aspirin 1 tab PO DAILY 09/01/19 09/01/19 Unknown History - History of Present Illness -Gen Adult Nature of Presenting Problems: Patient is a 58 year old female who presents with multiple complaints. Patient's son states symptoms of weakness to bilateral lower extremities, frequent falls, bilateral knee pain, dizziness, loss of appetite, and frequent urination,. Patient states hitting her head yesterday. Patient reports symptoms started 2 days ago. History of A fib, seizure and gastric bypass. Location of Pain/Injury: reports: lower extremity (bilateral knees) Pain Radiation: reports: no radiation Quality of Pain: reports: aching Severity: reports: mild Onset/Duration: reports: 2 days ago Timing: reports: still present, getting worse Context/Activities at Onset: reports: light activity Associated Symptoms: reports: dizziness, genitourinary problems (frequent urination), loss of appetite, weakness (BLE) Similar Symptoms Previously?: Yes Recently seen or treated by another doctor?: Yes Review of Systems - Adult - REVIEW OF SYSTEMS - ADULT Constitutional: reports: no symptoms reported Eyes: reports: no symptoms reported Ears, Nose, Mouth & Throat: reports: no symptoms reported Cardiovascular: reports: no symptoms reported Respiratory: reports: no symptoms reported Gastrointestinal: reports: see HPI, poor appetite. denies: nausea, vomiting Genitourinary: reports: see HPI, frequency Musculoskeletal: reports: see HPI, muscle weakness (BLE), other (bilateral knee pain). denies: muscle aches Integumentary: reports: no symptoms reported Neurological: reports: see HPI, dizziness/vertigo (dizziness), other (head injury) Psychiatric: reports: no symptoms reported Endocrine: reports: no symptoms reported Hematologic/Lymphatic: reports: no symptoms reported Allergic/Immunologic: reports: no symptoms reported All Other Systems: Reviewed and Negative Past History - Adult - PAST MEDICAL HISTORY-ADULT Review of Records: reports: Old Records Reviewed, Nursing Assessment Review, Medications Reviewed, Social history reviewed & non-contributory. Major Childhood Illnesses: reports: denies history Cardiovascular: reports: cardiac disease, A-Fib, HTN Respiratory: reports: denies history Gastrointestinal: reports: denies history Obstetrical/Gynecological: reports: denies history Genitourinary: reports: kidney stones Musculoskeletal: reports: denies history Neurological: reports: Seizures/Epilepsy Endocrine/Immune: reports: Diabetes, thyroid disorder Other Conditions: reports: denies history - PRIOR SURGERIES/PROCEDURES Surgical/Procedure History: reports: appendectomy, cholecystectomy, hysterectomy , bowel surgery (Internal hernia surgery by Dr. Jordan 05/2015), gastric bypass - IMMUNIZATION STATUS Childhood Immunizations: See Nurse Assessment Flu Vaccine: See Nurse Assessment - FAMILY HISTORY Family History: reviewed, not pertinent - SOCIAL HISTORY Smoking: cigarettes (former) Substance Use: denies Living Situation: family Physical Exam-General - PHYSICAL EXAM-ADULT Initial Vital Signs Reviewed: Yes - CONSTITUTIONAL General Appearance: alert, no apparent distress, thin. negative: obtunded - HEAD, EARS, NOSE, MOUTH & THROAT HENMT: normocephalic/atraumatic, other (dry mucous membranes). negative: angioedema - RESPIRATORY Respiratory: chest non-tender, lungs clear, normal breath sounds. negative: respiratory distress, rhonchi, wheezing, increased rate - CARDIOVASCULAR Cardiovascular: normal peripheral pulses, irregularly irregular, other (rate controlled). negative: tachycardia - GASTROINTESTINAL (ABDOMEN) Abdominal Exam: normal bowel sounds, non tender, soft. negative: guarding - MUSCULOSKELETAL Back Exam: no vertebral tenderness, CVA tenderness (bilateral). negative: muscle spasm Extremity: non-tender. negative: erythema, pedal edema DTR: bicep (R): 2+, bicep (L): 2+, tricep (R): 2+, tricep (L): 2+, knee (R): 1+, knee (L): 1+, ankle (R): 1+, ankle (L): 1+ - SKIN Integumentary: normal turgor, warm/dry, pallor. negative: diaphoresis - NEUROLOGIC Neurologic: other (drift to bilateral lower extremities.). negative: aphasia, facial droop, sensory deficit - PSYCHIATRIC Psych/Mental Status: normal mood/affect, oriented x 3 Progress - PLAN OF CARE/RESULTS Progress/Plan/Lab Results: Vital Signs - 8 hr 09/01/19 13:29 Temperature 97.9 F Pulse Rate 97 H Respiratory Rate 16 Blood Pressure 143/105 O2 Sat by Pulse Oximetry 96 Result Diagrams: 09/01/19 14:20 09/01/19 14:20 - EKG 1 Time of EKG reading by physician:: 15:04 EKG Read and Signed by:: Bud Kelsey EKG Interpretation (*Must complete 3 of following elements*): Abnormal Rate: 91 Rhythm: A fib, rate controlled [place]: normal Comments: OAWMI; NSSTTWC - XRAY 1 XRAY Study: Chest Impression: See EMR Report ( EXAM: CHEST-PORTABLE 09/01/2019 HISTORY: weakness, falling TECHNIQUE: Erect AP portable at 1524 COMMENT: There are some small granulomata in the right upper lobe. There is no evidence of acute cardiac or pulmonary disease. Compared to 05/16/2019 there has been no significant change. There are old rib fractures. IMPRESSION: Stable chest. Electronically signed by Deacon Schmidt 09/01/2019 3:27 PM 09/01/19 1527 Interpreting Physician: Deacon Schmidt MD Dictated Date/Time: 09/01/19 1526 cc: Bud Kelsey MD; Azam Roa MD) - CONSULTS/PCP/HOSPITALIST Notification #1 *Consult/PCP/Hospitalist*: royal Time Discussed: 15:53 Consult Disposition: Will see in ED, Admit Departure - Departure Date of Disposition Decision: 09/01/19 Time of Disposition Decision: 15:53 DIAGNOSIS: Muscle weakness of lower extremity, Falls frequently, Polypharmacy Disposition: ADMITTED INPATIENT 09 Certified Medical Emergency: Emergent Condition: Stable Referrals and Follow-Ups: Azam Roa MD [Primary Care Provider] - - Critical Care Note This patient required my direct & personal management of CC.: No Attestation - Physician/ TYREE Attestation Patient care was provided by Advanced Practice Provider:: No The physician spent face to face time with patient:: Yes Advanced Practice Provider documentation review:: Supervising physician onsite and consulted in the evaluation and care of this patient. The physician did have a face to face encounter with the patient. This chart was documented by the indicated scribe, (Yolie Levine Scribe) and accurately reflects the services I performed and decisions made by me, Bud Kelsey MD, as attested by the provider's signature.
--- NOTE | 2019-09-01 17:26 | HISTORY AND PHYSICAL ---
PRIMARY CARE PHYSICIAN: Dr. Roa. CHIEF COMPLAINT: Multiple falls, weakness to bilateral lower extremities, dizziness, decreased appetite. States that she did hit her head yesterday when she fell. HISTORY OF PRESENTING ILLNESS: This is a 58-year-old female who presents to [facility] ER from her primary care physician's office after she went there stating that she had been having frequent falls with bilateral knee pain. States yesterday when she fell, she hit her head but did not lose consciousness, dizziness, loss of appetite, frequent urination. Her workup was fairly benign, showed a blood pressure 143/105. Laboratory data was all within normal limits except for her urine drug screen was presumptive positive for opiates, oxycodone, benzodiazepines and cannabinoids. She does not have a current prescription for an oxycodone and of course she does not have 1 for the cannabinoids stating that she smokes 2 to 3 joints daily, but we will put her in for further evaluation and treatment. PAST MEDICAL HISTORY: Atrial fibrillation, seizures, hypertension, kidney stones, and hypothyroidism. PAST SURGICAL HISTORY: Of gastric bypass and appendectomy, cholecystectomy, hysterectomy, hernia repair and pacemaker. FAMILY HISTORY: Reviewed and noncontributory. SOCIAL HISTORY: She currently lives with family, is a former smoker. Denies any alcohol use and smokes 2 to 3 marijuana joints daily. ALLERGIES: She has no known drug allergies. HOME MEDICATIONS: She takes Tylenol 650 mg p.o. q.6 hours p.r.n., Xanax 1 mg p.o. b.i.d., aspirin 81 mg p.o. daily, Cardizem 180 mg p.o. daily, Lexapro 10 mg p.o. daily, [place] 10 1 p.o. t.i.d. p.r.n. and Keppra 500 mg 3 tablets p.o. b.i.d. LABORATORY DATA: Showed a white blood cell count of 7.61, hemoglobin 12.3, hematocrit 39.9, platelets 326,000 and INR of 13 and 0.94. Sodium 145, potassium 3.5, chloride 106, CO2 27, BUN of 17, creatinine 1.1, glucose 136, magnesium of 1.9. Cardiac enzyme was negative. TSH of 0.99. Urine drug screen was presumptive positive for opiates, oxycodone, benzodiazepines and cannabinoids. Serum alcohol level showed none detected. CT of the head showed no evidence of acute intracranial disease. Lumbar spine CT showed no acute fracture. Chest x-ray showed a stable chest. EKG showed atrial fibrillation with a competing junctional pacemaker at 91. REVIEW OF SYSTEMS: She denied any fever, chills, blurred vision. She has had dizziness, frequent falls, bilateral knee pain, decreased appetite, frequent urination. Denied any chest pain, coughing, shortness of breath. No abdominal pain, constipation, diarrhea, nausea, vomiting. PHYSICAL EXAMINATION: On arrival she had a temperature of 97.9 degrees, pulse at 97, respirations 16, blood pressure 143/105, saturating 96% on room air. GENERAL: This is a 58-year-old female who presents to [facility] ER. Answers questions appropriately. HEENT: Normocephalic, atraumatic. Normal ENT inspection. Oropharynx and nares are clear. EYES: Pupils are equal, round, reactive to light and accommodation. Extraocular movements are intact. NECK: Normal inspection, normal range of motion. LUNGS: Clear to auscultation bilaterally with equal lung expansion and chest wall movement. HEART: Regular rate and rhythm. No murmurs, rubs, or gallops. ABDOMEN: Soft, nontender, nondistended. Bowel sounds are present x4 quadrants. MUSCULOSKELETAL: She had 3/5 strength x4 extremities. NEUROLOGICAL: The cranial nerves 2-12 appear grossly intact. ASSESSMENT: 1. Multiple falls. 2. Generalized weakness. 3. Polysubstance abuse. 4. Atrial fibrillation, history of. PLAN: She will be admitted to the medical unit placed on telemetry. We will consult physical therapy. Place on a healthy heart diet. We will continue her home medications. Place on Lovenox 40 mg subcutaneous q.24 for DVT prophylaxis. Discussed at length with this patient the importance of limiting her marijuana use as this may be contributing to her falls along with we will verify if she has a current prescription for an oxycodone, which I suspect she does not, but she does have a current 1 for the opiate, so this may be contributing to a lot of her multiple falls, but further orders after seen by attending. Dictated by JEFFREY Cardoso for Constantino Robison MD cc: JEFFREY Cardoso MD Kirk L. Jackson, MD
[2019-09-01] MEDS ORDERED: COZAAR PO ONE (17:49)
[2019-09-01] MEDS ORDERED: APRESOLINE IV PRN (17:50)
[2019-09-01] MEDS ORDERED: COZAAR ONE (17:57)
[2019-09-01] MEDS ORDERED: TYLENOL PO PRN ×2 (18:04)
[2019-09-01] MEDS ORDERED: ZOFRAN IV PRN (18:04)
[2019-09-01] MEDS: NORCO-10 PO PRN (18:22)
[2019-09-01] MEDS: LOVENOX SUBQ SCH (18:23)
--- NOTE | 2019-09-01 18:56 | HISTORY AND PHYSICAL ---
ADDENDUM: Patient seen and examined by myself. Full note dictated and discussed with the nurse practitioner. The patient presented to the hospital with dizziness, falling, lightheadedness. She states she takes [place], Xanax and marijuana for her chronic issues. Denies the use of Percocet. We are going to admit the patient to the hospital. Her blood pressures actually are elevated. We are going to restart some of her home blood pressure medications. We are going to stop any sedatives, and we will follow. cc: Constantino Robison MD
[2019-09-01] MEDS: KEPPRA PO SCH (23:27)
[2019-09-01] MEDS: XANAX PO SCH (23:28)
[2019-09-02 06:21] LABS: AGAP 10; BUN 13 mg/dL (8-22); CALCIUM 8.3 mg/dL (8.8-10.2); CHLORIDE 110 mmol/L (98-107); COSMO 288; CREATININE 0.8 mg/dL (0.5-0.9); ESTIMATED GFR > 60; GLUCOSE 83 mg/dL (70-104); POTASSIUM 3.2 mmol/L (3.5-5.1); SODIUM 145 mmol/L (136-145); TCO2 25 mmol/L (25-35)
[2019-09-02 06:46] LABS: BASO# 0.03 X1000 (0.0-0.2); BASO% 0.5 % (0.0-0.8); EOS# 0.07 X1000 (0.0-0.7); EOS% 1.2 % (0.0-10.0); HEMATOCRIT 33.8 % (37.0-47.0); HEMOGLOBIN 10.4 g/dL (12.0-16.0); IMM GRAN# 0.01 X1000 (0.0-0.04); IMM GRAN% 0.2 % (0.0-0.5); LYMPH# 1.91 X1000 (1.2-3.4); LYMPH% 32.5 % (20.5-51.1); MCH 28.5 PG (27-31); MCHC 30.8 g/dL (33-37); MCV 92.6 FL (81-99); MONO# 0.54 X1000 (0.11-0.59); MONO% 9.2 % (1.7-9.3); MPV 10.2 FL (7.4-10.4); NEUT# 3.32 X1000 (1.4-6.5); NEUT% 56.4 % (42.2-75.2); PLT 276 X1000 (130-400); RBC 3.65 XMIL (4.2-5.4); RDW 13.8 % (11.5-14.5); WBC 5.88 X1000 (4.8-10.8)
[2019-09-02] MEDS ORDERED: KLOR-CON PO ONE (07:19)
[2019-09-02] MEDS ORDERED: NS 1,000 ML IV SCH (07:30)
[2019-09-02] MEDS: ASPIRIN PO SCH (08:52)
[2019-09-02] MEDS: LEXAPRO PO SCH (08:52)
[2019-09-02] MEDS: KEPPRA PO SCH ×2 (08:53→21:15)
[2019-09-02] MEDS: XANAX PO SCH ×2 (08:53→21:15)
[2019-09-02] MEDS ORDERED: CARDIZEM CD PO SCH (09:00)
[2019-09-02] MEDS ORDERED: CARDIZEM IV ONE (10:51)
[2019-09-02] MEDS: NORCO-10 PO PRN ×2 (15:40→23:32)
--- NOTE | 2019-09-02 19:06 | PROGRESS NOTE ---
DATE: 09/02/2019 SUBJECTIVE: Patient with no complaints. States she is still tired, although she has really not been out of bed. OBJECTIVE: Temperature 98 degrees, pulse 101, respiratory rate 18, BP 136/76. General: The patient is awake, pleasant. She is in no distress.HEENT: Normocephalic. Neck supple. Cardiovascular: Rate controlled, appears regular. Chest clear, nonlabored. Abdomen soft, nondistended. ASSESSMENT AND PLAN: 1. Multiple falls. 2. Generalized weakness. 3. History of benzodiazepine and opiate use. 4. History of atrial fibrillation, which certainly could be the cause of her generalized weakness. She has had a couple of times where she has bounced into an elevated rate. We will continue telemetry and [*] cc: Constantino Robison MD
[2019-09-02] MEDS: LOVENOX SUBQ SCH (19:39)
[2019-09-03] MEDS: NORCO-10 PO PRN ×2 (09:22→17:35)
[2019-09-03] MEDS: LEXAPRO PO SCH (09:22)
[2019-09-03] MEDS: ASPIRIN PO SCH (09:22)
[2019-09-03] MEDS: KEPPRA PO SCH ×2 (09:22→21:17)
[2019-09-03] MEDS: CARDIZEM CD PO SCH (09:22)
[2019-09-03] MEDS: XANAX PO SCH ×2 (09:23→21:16)
[2019-09-03] MEDS ORDERED: CARDIZEM IV ONE (12:57)
--- NOTE | 2019-09-03 16:50 | PROGRESS NOTE ---
DATE: 09/03/2019 SUBJECTIVE: Patient had wanted to go home today, and stated that she was feeling well. However, she had persistent episode with her heart rate in the 140s to 150s. OBJECTIVE: T-max 98.6 degrees, pulse 78 this morning, currently in the 140s to 150s. BP 140/81.General: Patient is pleasant. She is in no distress. HEENT: Normocephalic. Neck: Supple. Cardiovascular: Irregular rate. Irregular rhythm. Poor control. Abdomen: Soft. Nondistended. Lungs: Chest clear and nonlabored. Extremities: Moves all extremities. ASSESSMENT: Atrial fibrillation. This is likely the cause of her generalized weakness as twice during the hospitalization she has bounced in and out of RVR. However, this time she has been fairly persistent. We have increased her Cardizem from 180 to 240. We have also had to use additional IV Cardizem. Therefore, we will not discharge her home today, and will continue to adjust her heart rate medications as her blood pressure allows. cc: Constantino Robison MD
[2019-09-03] MEDS: LOVENOX SUBQ SCH (17:31)
[2019-09-04] MEDS: NORCO-10 PO PRN ×2 (01:54→08:54)
[2019-09-04 08:16] VITALS: BP 135/92
[2019-09-04] MEDS: ASPIRIN PO SCH (08:53)
[2019-09-04] MEDS: LEXAPRO PO SCH (08:54)
[2019-09-04] MEDS: KEPPRA PO SCH (08:54)
[2019-09-04] MEDS: CARDIZEM CD PO SCH (08:54)
[2019-09-04] MEDS: XANAX PO SCH (08:54)
--- NOTE | 2019-09-04 20:57 | DISCHARGE SUMMARY ---
ADMISSION DATE: 09/01/2019 DISCHARGE DATE: 09/04/2019 DISCHARGE DIAGNOSIS: 1. Generalized weakness, appears to be improving. The patient is able to ambulate in the room. 2. Multiple falls. 3. Atrial fibrillation with frequent episodes of rapid ventricular response. We did increase her Cardizem from 180 to 240. 4. Chronic anxiety. 5. Chronic pain. See below. 6. History of seizures. CONSULTATIONS: None. PROCEDURES: None. BRIEF HOSPITAL COURSE: The patient is a 58-year-old female who presented to the hospital via her doctor asking her to come to the ER noting that she had been having increased weakness. While in the hospital, patient had several episodes of atrial fibrillation with RVR which certainly could be contributing to her generalized weakness. Oddly enough, she also apparently takes her [place] however she chooses. Frequently she got upset with the staff because they would only give her 1 pill at a time and she notes that she takes 3 at a time typically. We discussed with her that Xanax and [place] certainly can be contributing to her generalized weakness. However, patient declined any assistance in weaning these. Otherwise, her home medications were continued. We did increase Cardizem from 180 to 240 to see if this would help with her elevated heart rates. Over the next 24 hours it does appear to have improved. DISPOSITION: Patient will be discharged home. She will follow up outpatient with her primary care. We increased her Cardizem, prescription was written. No other changes were made. cc: Constantino Robison MD
== END 2019-09-04 12:00 | disposition home or self-care (01) ==
LOC: P.ED 13:24 → EDIPHOLD 13:24 → P.MEDSURG 20:52
PROVIDERS: ADMIT Family Medicine

== ENCOUNTER 2019-11-23 05:29 | Inpatient (IN) ==
--- NOTE | 2019-11-23 06:04 | EKG Report ---
Test Performed on : 11/23/2019 05:51:28 AM Test Reason : preop Blood Pressure : / mmHG Vent. Rate : 090 BPM Atrial Rate : 394 BPM P-R Int : 000 ms QRS Dur : 068 ms QT Int : 344 ms P-R-T Axes : 000 -23 014 degrees QTc Int : 420 ms Atrial fibrillation. Abnormal ECG When compared with ECG of 01-SEP-2019 15:04, No significant change was found Confirmed by Ronni RICE, Pete Ortez ([id number]) on 11/23/2019 9:08:11 AM
[2019-11-23] MEDS ORDERED: LR 1,000 ML ONE (06:08)
[2019-11-23] MEDS ORDERED: KEFZOL 1 GM/D5W 2 GM/100 ML IVPB ONE (06:08)
[2019-11-23] MEDS ORDERED: REGLAN ONE (06:08)
[2019-11-23] MEDS ORDERED: PEPCID ONE (06:08)
[2019-11-23] MEDS ORDERED: COLACE ONE (06:19)
[2019-11-23] MEDS ORDERED: CELEBREX ONE (06:20)
[2019-11-23] MEDS ORDERED: LYRICA ONE (06:20)
[2019-11-23 06:34] LABS: URINE SOURCE VOIDED
[2019-11-23 06:37] LABS: BILIRUBIN URINE NEGATIVE (NEGATIVE); BLOOD URINE NEGATIVE (NEGATIVE); COLOR YELLOW; GLUCOSE URINE NEGATIVE (NEGATIVE); KETONE URINE NEGATIVE (NEGATIVE); LEUKOCYTES URINE LARGE (NEGATIVE); NITRITE URINE NEGATIVE (NEGATIVE); PH URINE 6.5; PROTEIN URINE TRACE mg/dL (NEGATIVE); SP GRAVITY URINE 1.015; TURBIDITY URINE CLEAR (CLEAR); UROBILINOGEN URINE NORMAL (NORMAL)
[2019-11-23 06:38] LABS: UR EPITHELIAL CELLS <10 /HPF (<10); URINE BACTERIA NEGATIVE /HPF; URINE RBC <10 /HPF (<10); URINE WBC TNTC /HPF (<10)
[2019-11-23] MEDS ORDERED: XYLOCAINE-MPF 2% ONE (06:40)
[2019-11-23] MEDS ORDERED: DIPRIVAN 1% ONE (06:40)
[2019-11-23 06:41] LABS: BASO# 0.03 X1000 (0.0-0.2); BASO% 0.3 % (0.0-0.8); EOS# 0.01 X1000 (0.0-0.7); EOS% 0.1 % (0.0-10.0); HEMATOCRIT 29.6 % (37.0-47.0); HEMOGLOBIN 8.7 g/dL (12.0-16.0); LYMPH# 1.15 X1000 (1.2-3.4); LYMPH% 10.6 % (20.5-51.1); MCH 30.7 PG (27-31); MCHC 29.4 g/dL (33-37); MCV 104.6 FL (81-99); MONO# 0.78 X1000 (0.11-0.59); MONO% 7.2 % (1.7-9.3); NEUT# 8.91 X1000 (1.4-6.5); NEUT% 81.8 % (42.2-75.2); PLT 312 X1000 (130-400); RBC 2.83 XMIL (4.2-5.4); RDW 18.5 % (11.5-14.5); WBC 10.88 X1000 (4.8-10.8)
[2019-11-23] MEDS ORDERED: VERSED ONE ×2 (06:42→07:02)
[2019-11-23] MEDS ORDERED: QUELICIN (DOSE) ONE (06:43)
[2019-11-23 06:47] LABS: INR 0.99; PROTIME 13.2 Seconds (11.0-16.0)
[2019-11-23] MEDS ORDERED: SUFENTA ONE (06:47)
[2019-11-23 06:48] LABS: PTT 28.7 Seconds (22.3-41.8)
[2019-11-23] MEDS ORDERED: CYKLOKAPRON 1,000 MG/NS 1,000 MG/100 ML IVPB ONE (06:48)
[2019-11-23] MEDS ORDERED: DURAMORPH ONE (06:48)
[2019-11-23] MEDS ORDERED: TORADOL ONE (06:48)
[2019-11-23] MEDS ORDERED: MARCAINE 0.25% PF ONE (06:48)
[2019-11-23] MEDS ORDERED: NEOSPORIN G.U. IRRIGANT ONE (06:49)
[2019-11-23] MEDS ORDERED: SODIUM CHLORIDE 0.9% ONE (06:49)
[2019-11-23] MEDS ORDERED: EXPAREL 1.3% ONE (06:49)
[2019-11-23 07:08] LABS: HEMOGLOBIN A1C 4.2 % (4.8-6.0)
[2019-11-23] MEDS ORDERED: ZOFRAN ONE (07:52)
[2019-11-23] MEDS ORDERED: DECADRON ONE (07:52)
[2019-11-23 07:56] LABS: ALBUMIN 2.7 g/dL (3.5-5.0); CALCIUM 8.7 mg/dL (8.8-10.2); POTASSIUM 4.5 mmol/L (3.5-5.1)
[2019-11-23] MEDS ORDERED: VANCOMYCIN ONE (08:13)
[2019-11-23 08:42] LABS: URINE SOURCE CATH
[2019-11-23 08:57] LABS: BILIRUBIN URINE NEGATIVE (NEGATIVE); BLOOD URINE NEGATIVE (NEGATIVE); COLOR YELLOW; GLUCOSE URINE NEGATIVE (NEGATIVE); KETONE URINE NEGATIVE (NEGATIVE); LEUKOCYTES URINE LARGE (NEGATIVE); NITRITE URINE NEGATIVE (NEGATIVE); PROTEIN URINE TRACE mg/dL (NEGATIVE); SP GRAVITY URINE 1.015; TURBIDITY URINE CLEAR (CLEAR); UROBILINOGEN URINE NORMAL (NORMAL)
[2019-11-23 08:58] LABS: UR EPITHELIAL CELLS <10 /HPF (<10); URINE BACTERIA NEGATIVE /HPF; URINE RBC <10 /HPF (<10); URINE WBC 20-40 /HPF (<10)
--- NOTE | 2019-11-23 09:18 | OPERATIVE NOTE ---
PROCEDURE DATE: 11/23/2019 PREOPERATIVE DIAGNOSIS: Left comminuted proximal humeral fracture. POSTOPERATIVE DIAGNOSIS: Left comminuted proximal humeral fracture. PROCEDURE PERFORMED: Left reverse shoulder arthroplasty with DePuy Delta Xtend size 10 cemented stem, a 38+ 3 humeral cup, a 38+ 6 mm lateralized eccentric Glenosphere, and a standard metaglene. SURGEON: Rick Calderon M.D. PATIENT REGISTRATION SPECIALIST: Kaylynn Hereida, who was necessary for proper positioning, manipulation of the extremity during the case, and improved efficiency. SECOND THREAD MARKER: Sachin Egan. ANESTHESIA: General. IV FLUIDS: 1300 mL of lactated Ringer's. ESTIMATED BLOOD LOSS: 200 mL. COMPLICATIONS: None. INDICATION: The patient is a pleasant, 59-year-old female, who is status post injury to her left shoulder on 11/01/2019. The patient presented to the emergency room, subsequently to the office, and had left comminuted displaced proximal humeral fracture. After obtaining preoperative medical clearance, the recommendation to proceed with intramedullary nailing was offered. Risks and benefits of surgery were explained, including the risks of anesthesia, , bleeding, infection, failure to relieve pain, postoperative stiffness, nerve injury, blood clots, and other imponderables. All questions were answered. The patient and family wished to proceed with surgery. DESCRIPTION OF PROCEDURE: The patient was taken to the operating room and placed supine on the operating table. Once adequate anesthesia was obtained, the patient was placed in a semi-Rose beach-chair position. The left shoulder was subsequently prepped and draped in the usual sterile fashion. A standard deltopectoral incision was made with a skin knife. Hemostasis was obtained using electrocautery. The deltopectoral interval was then developed, and the fracture site was identified. The comminuted proximal humerus was excised, along with the humeral head with sharp dissection, and soft tissue was resected off of the bone fragments. After adequate debridement of this portion had been performed, attention was then turned to the glenoid. After circumferential dissection had been performed, a guide was then placed on the glenoid. Guide pin was then placed. Reaming was then conducted. Central hole was then dilated. The wound was copiously irrigated with antibiotic pulsatile lavage. A standard metaglene was then placed. Two locking screws were placed, and one nonlocking screw was placed. After this had been performed, the wound was copiously irrigated. A 38+ 6 lateralized eccentric Glenosphere was then placed with eccentricity placed inferiorly. Attention was then turned to the proximal humerus, where the intramedullary canal was then debrided with a rongeur and a curette. After this had been performed, a trial stem was then placed to determine the appropriate height. After this had been performed, vancomycin was mixed with cement on the back table. Copious irrigation was performed in the intramedullary canal, with copious irrigation with antibiotic pulsatile lavage. After this had been performed, the cement was then placed, and the stem was then placed in approximately 15 degrees of retroversion. After this had been performed and after the cement had cured, the trial cup appeared to be a 38+ 3 cup. The wound was copiously irrigated. The trial cup was removed. A 38+ 3 humeral cup was then impacted on the stem. The shoulder was reduced, carried through range of motion, and had excellent stability and range of motion. Exparel was placed in the deep soft tissue, as well as subcutaneous tissue. Copious irrigation was then performed once again with antibiotic pulsatile lavage. 2-0 Vicryl was then used to repair the subcutaneous tissue, followed by running 2-0 Prolene. Benzoin and Steri-Strips were applied. Adaptic, sterile 4 x 4's, ABD pad, and tape were applied to the left shoulder, followed by a shoulder immobilizer. All counts were correct. The patient tolerated the procedure well, and was transferred to the recovery room in stable condition. cc: Rick Calderon MD
[2019-11-23] MEDS ORDERED: NS 1,000 ML ONE (10:06)
[2019-11-23] MEDS ORDERED: MILK OF MAGNESIA PO PRN (10:15)
[2019-11-23] MEDS ORDERED: OXY IR PO PRN (10:15)
[2019-11-23] MEDS ORDERED: ZOFRAN PO PRN (10:15)
[2019-11-23] MEDS ORDERED: MORPHINE IV PRN ×2 (10:15)
--- NOTE | 2019-11-23 10:35 | Diag Imaging Result Doc PS360 ---
EXAM: SHOULDER 1 VIEW LEFT 11/23/2019 HISTORY: post op total shoulder TECHNIQUE: Left shoulder one view COMMENT: There is a total shoulder arthroplasty. There is some apparent heterotopic ossification medial to the proximal humeral shaft. Mild degenerative changes are present in the acromioclavicular joint. IMPRESSION: Postsurgical changes. Electronically signed by Deacon Schmidt 11/23/2019 10:32 AM
[2019-11-23] MEDS ORDERED: CYKLOKAPRON 1,000 MG/NS 1,000 MG/100 ML IVPB IV ONE (13:00)
[2019-11-23] MEDS: TYLENOL PO SCH ×4 (13:39→21:34)
[2019-11-23] MEDS: NS 1,000 ML IV SCH (13:39)
[2019-11-23] MEDS: KEFZOL 1 GM/D5W 1 GM/50 ML IVPB IV SCH ×3 (15:36→22:28)
[2019-11-23] MEDS: OXY IR PO PRN (16:20)
[2019-11-23] MEDS: COLACE PO SCH (20:30)
[2019-11-23] MEDS: PRILOSEC PO SCH (21:33)
[2019-11-23] MEDS: XANAX PO SCH (21:33)
[2019-11-23] MEDS: PERIDEX MT SCH (21:33)
[2019-11-23] MEDS: KEPPRA PO SCH (21:33)
[2019-11-23] MEDS: LOPRESSOR PO SCH (21:34)
[2019-11-24] MEDS: LOPRESSOR PO SCH ×4 (01:13→20:26)
[2019-11-24] MEDS: NS 1,000 ML IV SCH ×2 (01:26→18:59)
[2019-11-24] MEDS: TYLENOL PO SCH ×4 (05:48→23:20)
--- NOTE | 2019-11-24 06:56 | ORTHOPAEDICS PROGRESS NOTE ---
DATE: 11/24/2019 SUBJECTIVE: The patient is a pleasant, 59-year-old female who is 1 day status post left reverse shoulder arthroplasty for a fracture. The patient is currently resting comfortably. OBJECTIVE: On physical exam of the patient's left lower extremity, her wound looks good. She does have expected swelling. She is able to flex and extend her fingers. She is grossly neurovascularly intact. Her labs are pending. IMPRESSION: Postoperative day #1 status post left reverse shoulder arthroplasty for a fracture. PLAN: At this point, we will begin mobilization. We will consult licensed master social worker for discharge planning. The patient is frail and has had multiple falls, and also significant weakness, and will have evaluation for inpatient rehabilitation. cc: Rick Calderon MD
[2019-11-24 07:34] LABS: CALCIUM 8.4 mg/dL (8.8-10.2); CREATININE 1.4 mg/dL (0.5-0.9); POTASSIUM 4.3 mmol/L (3.5-5.1)
[2019-11-24 07:49] LABS: HEMATOCRIT 20.7 % (37.0-47.0); HEMOGLOBIN 6.1 g/dL (12.0-16.0)
[2019-11-24] MEDS: LEXAPRO PO SCH (08:45)
[2019-11-24] MEDS: KEPPRA PO SCH ×3 (08:45→20:26)
[2019-11-24] MEDS: CARDIZEM CD PO SCH (08:46)
[2019-11-24] MEDS: PERIDEX MT SCH ×2 (08:46→20:27)
[2019-11-24] MEDS: OXY IR PO PRN ×3 (08:49→20:25)
--- NOTE | 2019-11-24 09:21 | Diag Imaging Result Doc PS360 ---
EXAM: CHEST-PORTABLE HISTORY: rehab placement TECHNIQUE: Single view COMPARISON: 09/01/2019 FINDINGS: The lungs are well expanded. The heart is not enlarged. The vessels are not distended. There are mild increased markings in the left base. No effusion identified. The left shoulder has been replaced. There are several old bilateral rib fractures. IMPRESSION: Tiny infiltrate or atelectasis in the left base. Electronically signed by Srikanth Perez 11/24/2019 9:18 AM
[2019-11-24] MEDS: XANAX PO SCH ×2 (10:40→20:25)
[2019-11-24] MEDS: COLACE PO SCH ×2 (10:55→20:26)
[2019-11-24] MEDS: MORPHINE IV PRN ×3 (10:56→18:50)
[2019-11-24] MEDS: PRILOSEC PO SCH (20:27)
[2019-11-25] MEDS: TYLENOL PO SCH ×3 (03:10→10:28)
[2019-11-25] MEDS: LOPRESSOR PO SCH ×2 (03:10→08:32)
[2019-11-25 06:38] LABS: HEMATOCRIT 24.9 % (37.0-47.0); HEMOGLOBIN 7.5 g/dL (12.0-16.0)
[2019-11-25 07:25] LABS: AGAP 9; BUN 23 mg/dL (8-22); CHLORIDE 117 mmol/L (98-107); COSMO 289; CREATININE 0.9 mg/dL (0.5-0.9); ESTIMATED GFR > 60; GLUCOSE 64 mg/dL (70-104); POTASSIUM 3.5 mmol/L (3.5-5.1); SODIUM 144 mmol/L (136-145); TCO2 18 mmol/L (25-35)
[2019-11-25 07:27] LABS: CALCIUM 6.4 mg/dL (8.8-10.2)
[2019-11-25] MEDS: KEPPRA PO SCH (08:32)
[2019-11-25] MEDS: PERIDEX MT SCH (08:32)
[2019-11-25] MEDS: COLACE PO SCH (08:32)
[2019-11-25] MEDS: LEXAPRO PO SCH (08:32)
[2019-11-25] MEDS: CARDIZEM CD PO SCH (08:32)
[2019-11-25] MEDS: OXY IR PO PRN ×2 (08:33→12:15)
[2019-11-25] MEDS ORDERED: CALTRATE 600 + D PO SCH (09:00)
[2019-11-25] MEDS: XANAX PO SCH (09:11)
--- NOTE | 2019-11-25 09:17 | DISCHARGE SUMMARY ---
ADMISSION DATE: 11/23/2019 DISCHARGE DATE: 11/25/2019 ADMITTING DIAGNOSES: 1. Left comminuted proximal humeral fracture. 2. Chronic atrial fibrillation. 3. Seizure disorder. 4. Generalized weakness with history of multiple falls. DISCHARGE DIAGNOSES: 1. Left comminuted proximal humeral fracture. 2. Chronic atrial fibrillation. 3. Seizure disorder. 4. Generalized weakness with history of multiple falls. 5. Status post left reverse total shoulder arthroplasty. 6. Acute blood loss anemia, treated with transfusion. BRIEF HISTORY: The patient is a pleasant 59-year-old female with multiple medical problems who sustained multiple falls and has generalized weakness. Her most recent fall she sustained a left comminuted proximal humeral fracture. After obtaining preoperative medical clearance, the recommendation to proceed with left reverse total shoulder arthroplasty was offered. Risks and benefits of surgery were explained and all questions were answered. HOSPITAL COURSE AND TREATMENT: The patient was admitted to the hospital and underwent left reverse total shoulder arthroplasty. The patient tolerated the procedure well. By postoperative day number 2, her hemoglobin and hematocrit had decreased to 6.1 and 20.7. She was treated with 2 units packed red blood cells, and her hemoglobin and hematocrit stabilized to 7.5 and 24.9. She also on postoperative day number 2 had hypocalcemia with a calcium level of 6.4 and was treated with calcium supplementation. The patient also given her malnutrition was placed on Ensure twice, with breakfast and dinner, which she was doing prior to. Dr. Swift was consulted to assist with medical management and for medical clearnce for discharge. It was felt the patient would benefit from inpatient rehabilitation. The patient and family were agreeable to this. Prior to discharge, the patient is afebrile, tolerating a regular diet. Her wound looked good. There were no signs or symptoms of infection. DISCHARGE INSTRUCTIONS: 1. The patient will be discharged for inpatient rehabilitation. 2. Consult physical therapy for gait training, and she will be nonweightbearing to left upper extremity. The patient may be perform pendulum exercises and range of motion of the left elbow, wrist, and fingers. 3. Discontinue sutures in 10 days. 4. Follow up in the office in 3 weeks. cc: Rick Calderon MD MTDD
[2019-11-25 09:45] LABS: MAGNESIUM 1.6 mg/dL (1.5-2.7)
[2019-11-25] MEDS ORDERED: KLOR-CON PO SCH (10:00)
--- NOTE | 2019-11-25 10:01 | EKG Report ---
Test Performed on : 11/25/2019 09:24:32 AM Test Reason : afib Blood Pressure : / mmHG Vent. Rate : 101 BPM Atrial Rate : 326 BPM P-R Int : 000 ms QRS Dur : 082 ms QT Int : 322 ms P-R-T Axes : 000 196 159 degrees QTc Int : 417 ms Atrial fibrillation. with rapid ventricular response. Right superior axis deviation Anteroseptal infarct , age undetermined Abnormal ECG When compared with ECG of 23-NOV-2019 05:51, QRS axis shifted left T wave inversion now evident in Lateral leads Confirmed by Ronni RICE, Pete Ortez ([id number]) on 11/25/2019 3:34:40 PM
[2019-11-25] MEDS: MORPHINE IV PRN (10:24)
[2019-11-25] MEDS: MAGNESIUM SULFATE 2 GM/S.W.I. 2 GM/50 ML IVPB IV SCH ×2 (11:29→13:00)
--- NOTE | 2019-11-25 11:44 | CONSULTATION ---
DATE OF CONSULTATION: 11/25/2019 CONSULTING PHYSICIAN: Dr. Calderon. REASON FOR CONSULTATION: Chronic atrial fibrillation with intermittent RVR and medical management. CHIEF COMPLAINT: Left shoulder pain. HISTORY OF PRESENT ILLNESS: Ms. Meg Dan is a 59-year-old female with a medical history of protein calorie malnutrition secondary to gastric bypass surgery around 16 years ago. Has frequent falls. She states she has them around 1 to 2 per week. Left face is bruised; right eye is bruised; she most recently sustained a left comminuted proximal humeral fracture and now she is status post left reverse total shoulder arthroplasty. I believe she is getting ready to go for inpatient rehabilitation. However, she has been having little intermittent spells of atrial fib with rapid ventricular response. She is only on aspirin at home. She is not on any anticoagulants, but she does take beta aj and Cardizem for rate control. She is anemic postoperative, but vitals are stable. Still continues to be malnourished. She states she only eats 2 to 3 bites twice a day and drinks around 2 to 3 cans of Boost per day, but that is about it. PAST MEDICAL HISTORY: 1. Nephrolithiasis. 2. Chronic atrial fibrillation on aspirin therapy. 3. History of morbid obesity, but bypass surgery 16 years ago. 4. Hypertension. 5. Diabetes mellitus type 2. 6. Seizure disorder, but no seizures in 8 years since she smokes marijuana on a daily basis now. 7. Frequent falls. SURGICAL HISTORY: 1. Romy-en-Y gastric bypass 16+ years ago. 2. Gastrectomy. 3. Hysterectomy. 4. Exploratory laparotomy with repair of ventral hernia after her Romy-en-Y gastric bypass. 5. Exploratory lap twice for scar tissue removal. 6. Left reverse total shoulder arthroplasty. SOCIAL HISTORY: Denies tobacco or alcohol. She does smoke marijuana daily and usually is 2 joints per day. She lives with her 30-year-old son. Does not use any assistive devices at home for ambulation. States she really just trips over her own feet. She does not get dizzy. FAMILY HISTORY: Mother was murdered by gunshot wound when she worked at the [employer] around 20 years ago. No real known medical history on her. Her father had diabetes, heart trouble and stroke. ALLERGIES: No known drug allergies. HOME MEDICATIONS: 1. Metoprolol 25 mg p.o. q. 6 hours. 2. Cardizem 240 mg p.o. daily. 3. Keppra 500 mg p.o. t.i.d. 4. Lexapro 10 to 20 mg p.o. daily. 5. Prilosec 20 mg p.o. nightly. 6. Xanax 1 mg p.o. twice daily. 7. Caltrate 600+ D one tablet p.o. daily. 8. Milk of magnesia 30 mL every 6 hours p.r.n. 9. Oxycodone immediate release 5 mg p.o. q. 6 hours p.r.n. MEDICATIONS SHE IS ON HERE IN THE HOSPITAL: 1. Tylenol. 2. Xanax. 3. Caltrate. 4. Peridex. 5. Cardizem. 6. Colace. 7. Lexapro. 8. Keppra. 9. Milk of magnesia. 10. Lopressor. 11. Morphine. 12. Prilosec. 13. Zofran. 14. Oxycodone. 15. She has normal saline at 75 an hour. 16. There is a one-time dose of 2 g IV magnesium. 17. Now there is two doses of 40 of p.o. potassium ordered. REVIEW OF SYSTEMS: Fourteen point review of systems are complete, and all were negative except those mentioned above in the HPI. Her biggest pain is in her left shoulder. She also complains of left arm swelling with edema and oozing. Denies fever. States she has not had a bowel movement yet, but is passing gas. She gets cool, but no fever and decreased appetite. PHYSICAL EXAMINATION: Vital Signs: Temperature 98.3 degrees, heart rate 66, respiratory rate 17, blood pressure 100/74, O2 saturation 96% on room air. General: Ms. Meg Dan is a 59-year-old female. She is comfortably sitting in a recliner without any complaints. She is in no acute distress. She is able to answer questions appropriately. HEENT: Atraumatic. However, she does have bruising over the left face and over the right eye. Mucous membranes are moist. She has got pupils that are equal and reactive. Extraocular movements intact. Neck: Trachea midline. Cardiovascular: Irregularly irregular rate and rhythm. No rubs, gallops, murmurs. No lower extremity edema. However, she does have left upper extremity edema, likely posttraumatic. Negative for JVD. No carotid bruits. Pulmonary: Clear to auscultation. Bilateral breath sounds. No accessory muscle use or work of breathing noted. She is tolerating room air. GI: Soft, nontender, nondistended. Positive bowel sounds x4. Extremities: Moves all extremities equally. Decreased range of motion, except for the left upper arm she cannot move. She essentially uses her right arm to move her left arm due to the pain. However, she can move it; it is just painful, very weak. Pickle Pumper probably a 3/5. Neurologic: A and O x3. Follows commands. Sensory is intact. Skin: Warm, dry, intact, except for the bruising noted over the face and then the left shoulder incision is dry and intact. There is old blood noted on the Steri-Strips, but it is well-approximated. No signs or symptoms of infection. LABORATORY DATA: Today hemoglobin and hematocrit is 7.5 and 24.9. Sodium 144, potassium 3.5, BUN 23, creatinine 0.4, glucose last recorded at 64 with a hemoglobin A1c of 4.2. Calcium is 6.4, magnesium 1.6, albumin 2.0. IMAGING: On the , she had her shoulder x-ray which showed postsurgical changes. On the , she had a chest x-ray which showed a tiny infiltrate or atelectasis in the left base. EKG on the showed atrial fibrillation, rate was 90. EKG that was just performed today is also atrial fibrillation, rate 101, QTc 417, so it is with RVR, but just barely. She has chronic atrial fibrillation. ASSESSMENT AND PLAN: 1. Frequent falls with recent left comminuted proximal humeral fracture, now status post left reverse total shoulder arthroplasty performed by Dr. Calderon. 2. Acute blood loss anemia. Vitals are stable. Start Iron tablets. 3. Chronic atrial fibrillation with mild rapid ventricular response. Blood pressure stable. Continue the Cardizem at 240 p.o. daily. Continue her metoprolol 25 mg p.o. q. 6 hours. Replace the potassium; it is 3.5. Supplement the magnesium; it is currently 1.6. Start low dose aspirin. 4. Recent acute kidney injury, but that appears to be essentially resolved. 5. Severe protein calorie malnutrition. Albumin is at 2.0. Diet at the moment is regular diet. She gets Ensure with meals. May do a nutritional consultation. 6. Left forearm swelling and is very edematous with oozing. Likely related to surgery. We will leave management as per the primary team. 7. History of seizure disorder; apparently she has not had any seizures for the last 8 years. She states she smokes marijuana on a daily basis and that is what has helped her. Continue Keppra. She was advised about stopping recreational substances and have a follow up with her regular physician. 8. Hypocalcemia. It looks like she is getting a Calcium supplement. Will calculate corrected calcium according to the albumin and replace if needed. 9. Pain control includes oxycodone, morphine, and it looks like she is also on Colace for stool softener. 10. Anxiety history. She is on Xanax that has been continued. 11. Deep venous thrombosis prophylaxis; currently on just sequential compression devices. Dictated by JEFFREY Carreno for Jani Swift MD cc: JEFFREY Carreno MD I agree with most components of consultation in this note. A separate addendum has been dictated. JESSICA
--- NOTE | 2019-11-25 12:44 | CONSULTATION ---
DATE OF CONSULTATION: 11/25/2019 ADDENDUM: Addendum to consultation dictated by the nurse practitioner. I agree with most components of consultation. In brief, Ms. Dan is a 59-year-old lady with past medical history of recurrent falls, chronic atrial fibrillation, who was admitted after another such fall leading to left-sided humerus fracture, who underwent surgery. Her postoperative course was complicated by atrial fibrillation with rapid ventricular response, so consultation has been requested for management. CONSULTATION REQUESTED BY: Dr. Calderon. SUBJECTIVE: Ms. Deshpande is complaining of left upper extremity pain. VITALS: Temperature 98.3 degrees, pulse 66, respiratory 17, blood pressure 100/74, saturating 96% on room air. REVIEW OF SYSTEMS: Ms. Dan states she denies any chest pain, shortness of breath as such. However, she has been feeling short of breath since last 3 weeks, though her oxygen saturation is normal. She denies any palpitation, nausea, vomiting, abdominal pain. PHYSICAL EXAMINATION: General: Not in acute distress. Oral cavity: Moist. Lungs: Air entry bilaterally equal. No wheeze, rhonchi. She has mild crackles infrascapular region. Heart: S1, S2 normal. Irregularly irregular. Heart rate of 101 on my evaluation at bedside. Abdomen: Soft, nontender. Extremities: She has mild ankle edema. She has left upper extremity edema, and I could see sutures on the left shoulder region. Neurologic: She is alert and oriented x3, sitting in the chair. LABS: Suggestive of hemoglobin of 7.5. Her BUN is 23, creatinine 0.9, calcium is 6.4. She is on calcium supplementation. ASSESSMENT: 1. Atrial fibrillation with rapid ventricular response with history of chronic A Fib. Her current episode is due to post-operative pain. Continue home metoprolol, diltiazem and add baby aspirin low dose. She was advised to have follow up with Dr. Major for outpatient echocardiogram. Considering recurrent fall, she is at risk of life- threatening bleeding on therapeutic anticoagulation. After discussing risks versus benefit, we decided to hold it. She should have ongoing discussion with outpatient doctor. We will replete Potassium and Magnesium before discharge. 2. Acute blood loss anemia: Continue iron tablets. Get a repeat blood count done in 3 days at the rehab. 2. Continue Keppra for seizure medications. 3. She should get outpatient evaluation for osteoporosis and continue calcium and vitamin D 3 supplementation. 4. Continue management of fracture and postoperative care as per primary team. Thank you for allowing us to take part in this patient's care. Plan of care discussed with Ms. Dan. We discussed about the risk versus benefit of anticoagulation; we discussed about osteoporosis; atrial fibrillation; outpatient Cardiology followup. I allowed her to ask questions; her questions have been answered. She is stable from Medicine perspective for discharge to a rehab. This has been conveyed to the social media assistant team. cc: Jani Swift MD MTDD
[2019-11-25 14:38] VITALS: BP 93/63
--- NOTE | 2019-11-25 15:34 | ORTHOPAEDICS PROGRESS NOTE ---
DATE: 11/25/2019 SUBJECTIVE: The patient is a pleasant, 59-year-old female who is 2 days status post left reverse shoulder arthroplasty. The patient is currently resting comfortably. PHYSICAL EXAMINATION: Patient's left upper extremity has expected swelling appear. The wound looks good. There are no signs or symptoms of infection. She has diffuse ecchymosis. Able to flex her fingers. She is grossly neurovascularly intact. Her labs are H and H 7.5 and 24.9. Her creatinine improved to 0.9. She did have hypercalcemia of 6.4. IMPRESSION: 1. Status post left reverse total shoulder arthroplasty. 2. Acute blood loss anemia treated with transfusion. 3. Hypocalcemia. 4. Chronic atrial fibrillation. PLAN: At this point, given the patient's overall findings we will give her calcium supplement. Given her underlying medical problems of chronic atrial fibrillation, we consult the hospitalist for further evaluation prior to discharge to rehab. All questions were answered. cc: MD Jani Green MD
[2019-11-26] MEDS ORDERED: FERROUS SULFATE PO SCH (09:00)
[2019-11-26] MEDS ORDERED: ASPIRIN PO SCH (09:00)
== END 2019-11-25 14:39 | DRG 483 ==
LOC: SURHOLD 05:29 → 4N 07:47
PROVIDERS: ADMIT Internal Medicine; ATTEND Orthopaedic Surgery Adult Reconstructive Orthopaedic Surgery